=== PATIENT | female | born 1935 | race Caucasian/White ===

== ENCOUNTER 2016-06-27 14:39 | Inpatient (IN) | payer MEDICARE, OTHER ==
[~2016-06-27] VITALS: Ht 157.5 cm; Wt 63.6 kg
[2016-06-27 14:58] VITALS: BP 124/63; PULSE 59; RESP 16; TEMP 97.8; O2SAT 88
[2016-06-27] MEDS ORDERED: VITA10007 PO (14:59)
[2016-06-27] MEDS ORDERED: MULT-135 PO (14:59)
[2016-06-27] MEDS ORDERED: GABA600T PO ×2 (14:59)
[2016-06-27] MEDS ORDERED: REST0.05 EACH EYE (14:59)
[2016-06-27] MEDS ORDERED: POTA-163 PO (14:59)
[2016-06-27] MEDS ORDERED: FLUT1INH INH (14:59)
[2016-06-27] MEDS ORDERED: PROG100C PO (14:59)
[2016-06-27] MEDS ORDERED: DULO1CAP3 PO (14:59)
[2016-06-27] MEDS ORDERED: MEMA28CA PO (14:59)
[2016-06-27] MEDS ORDERED: RISP0.252 PO (14:59)
[2016-06-27] MEDS ORDERED: PHEN100C PO (14:59)
[2016-06-27] MEDS ORDERED: FURO20TA PO ×2 (14:59)
[2016-06-27] MEDS ORDERED: VIIB40TA PO (14:59)
[2016-06-27] MEDS ORDERED: VITA2000 PO (14:59)
[2016-06-27] MEDS ORDERED: ACYC5OIN4 TOPICAL (14:59)
[2016-06-27] MEDS ORDERED: BIOT2500 PO (14:59)
[2016-06-27] MEDS ORDERED: CYAN1TAB21 SL (14:59)
[2016-06-27] MEDS ORDERED: OMEG100037 PO (14:59)
[2016-06-27] MEDS ORDERED: VITACAP7 PO (14:59)
[2016-06-27] MEDS ORDERED: SODIUM CHLORIDE 0.9% FLUSH 5 ML FLUSH IVF PRN (15:00)
[2016-06-27] MEDS ORDERED: MECL12.574 PO (15:03)
[2016-06-27] MEDS ORDERED: HYDR-3583 PO (15:03)
[2016-06-27] MEDS ORDERED: HYOS0.128 PO (15:03)
[2016-06-27] MEDS ORDERED: BUTATAB6 PO (15:03)
[2016-06-27] MEDS ORDERED: TEMA30CA PO (15:03)
--- NOTE | 2016-06-27 15:06 | PD ---
HPI Chief Complaint: abdominal pain Time Seen by Provider: 14:51 Travel History International Travel<30 days: No Contact w/Intl Traveler<30days: No History of Present Illness HPI 81-year-old female presents from an assisted living facility where she had a trip and fall yesterday and went to an urgent care and was diagnosed with a rib fracture. She is having worsening pain and now abdominal pain so she presents here by ambulance. She states she did not hit her head or black out and denies other complaints other than pain to her chest and abdomen. Quality of pain is sharp. Severity is currently mild and it is intermittent in nature. 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, spinal surgery and neck, cataracts, IVC filter 2013, cystoscopy Social History Alcohol Use: No Tobacco Use: No Substance Use: No Allergies-Medications (Allergen,Severity, Reaction): Coded Allergies: Aspirin (Verified Allergy, Unknown, 06/27/16) Codeine (Verified Allergy, Unknown, 06/27/16) Fiorinal (Verified Allergy, Unknown, 06/27/16) Reported Meds & Prescriptions Reported Meds & Active Scripts Active Reported Tramadol (Tramadol HCl) 50 Mg Tab 1-2 Tab PO Q4-6H PRN Temazepam 30 Mg Cap 30 Mg PO HS PRN Meclizine (Meclizine HCl) 12.5 Mg Tab 12.5 Mg PO TID PRN Hyoscyamine (Hyoscyamine Sulfate) 0.125 Mg Tab 0.125 Mg PO Q6H Hydrocodone-Acetaminophen 10-325 mg Tab 1 Tab PO Q6H PRN Lhxjggwrxm-Btmexpnltugmu-Zrlehcjb 50-325-40 Mg Tab 1 Tab PO Q6HR PRN Do not exceed 6 tablets/day. Vitamin D3 (Cholecalciferol) 2,000 Unit Cap 2,000 Units PO DAILY Vitamin C (Ascorbic Acid) 1,000 Mg Tab 1,000 Mg PO DAILY Vitamin B-12 Odt (Cyanocobalamin) 5,000 Mcg Tab 2,500 Mcg SL DAILY Viibryd (Vilazodone) 40 Mg Tab 40 Mg PO DAILY Risperidone 0.25 Mg Tab 0.25 Mg PO BID Restasis Opth Drops (Cyclosporine Opth Drops) 0.05% Emul 1 Drop EACH EYE BID Progesterone Micronized 100 Mg Cap 100 Mg PO Potassium Chloride ER (Potassium Chloride) 20 Meq Tab 20 Meq PO DAILY Phenytoin Extended 100 Mg Cap 100 Mg PO BID Namenda Xr (Memantine) 28 Mg Caper 28 Mg PO DAILY Gabapentin 600 Mg Tab 600 Mg PO TID Gabapentin 600 Mg Tab 1,200 Mg PO HS Furosemide 20 Mg Tab 20 Mg PO DAILY@1600 Furosemide 20 Mg Tab 40 Mg PO DAILY Duloxetine DR (Duloxetine HCl) 60 Mg Capdr 60 Mg PO BID Breo Ellipta Inh (Fluticasone/Vilanterol) 100-25 Mcg/Act Inh 1 Puff INH DAILY Use daily at the same time. B Complex (B-Complex Vitamins) 1 Cap 1 Cap PO DAILY Acyclovir Topical (Acyclovir) 5% Oint 1 Applic TOPICAL Q3HR Multi Vitamin (Multiple Vitamin) 1 Tab Tab 1 Tab PO DAILY Fish Oil 1000 mg ([employer]-3 Fatty Acids) 1 Cap Cap Unknown Dose PO DAILY Biotin 2,500 Mcg Cap 2,500 Mcg PO DAILY Review of Systems ROS Limitations: Poor Historian Except as stated in HPI: all other systems reviewed are Neg Physical Exam Exam Limitations: Poor Historian Narrative General: 81 y/o patient in no apparent distress, patient had abdominal binder to chest wall which was removed and advised to not use Skin: Warm and dry Eyes: Pupils equal NECK: no pain with palpation and range of motion Cardiovascular: Regular rate and rhythm Respiratory: Normal respiratory effort noted, clear to auscultation bilaterally at apices Abdomen: soft, tender right upper quadrant, nondistended Back: No step-offs, midline spine nontender with movement Extremities: No pain over main joints Neuro: awake, moves all extremities, clear speech Data Data Last Documented VS Vital Signs Date Time Temp Pulse Resp B/P Pulse Ox O2 Delivery O2 Flow Rate FiO2 06/27/16 15:07 92 Nasal Cannula 2 06/27/16 14:58 97.8 59 16 124/63 Orders Basic Metabolic Panel (Bmp) (06/27/16 14:51) Complete Blood Count With Diff (06/27/16 14:51) Prothrombin Time / Inr (Pt) (06/27/16 14:51) Act Partial Throm Time (Ptt) (06/27/16 14:51) Type And Screen (06/27/16 14:51) Chest, Single Ap (06/27/16 14:51) Ct Abd/Pel W Iv Contrast(Rout) (06/27/16 14:51) Iv Access Insert/Monitor (06/27/16 14:51) Ecg Monitoring (06/27/16 14:51) Oximetry (06/27/16 14:51) Sodium Chloride 0.9% Flush (Ns Flush) (06/27/16 15:00) Ct Brain W/O Iv Contrast(Rout) (06/27/16 ) Ct Pulmonary Angiogram (06/27/16 ) Iohexol 350 Inj (Omnipaque 350 Inj) (06/27/16 17:30) Ketorolac Inj (Toradol Inj) (06/27/16 18:15) Admit Order (Ed Use Only) (06/27/16 18:16) Labs Laboratory Tests Test 06/27/16 15:14 White Blood Count 3.8 TH/MM3 Red Blood Count 4.04 MIL/MM3 Hemoglobin 13.3 GM/DL Hematocrit 39.8 % Mean Corpuscular Volume 98.4 FL Mean Corpuscular Hemoglobin 32.8 PG Mean Corpuscular Hemoglobin 33.3 % Concent Red Cell Distribution Width 13.6 % Platelet Count 125 TH/MM3 Mean Platelet Volume 7.4 FL Neutrophils (%) (Auto) 64.1 % Lymphocytes (%) (Auto) 24.8 % Monocytes (%) (Auto) 8.9 % Eosinophils (%) (Auto) 1.5 % Basophils (%) (Auto) 0.7 % Neutrophils # (Auto) 2.5 TH/MM3 Lymphocytes # (Auto) 0.9 TH/MM3 Monocytes # (Auto) 0.3 TH/MM3 Eosinophils # (Auto) 0.1 TH/MM3 Basophils # (Auto) 0.0 TH/MM3 CBC Comment DIFF FINAL Differential Comment Prothrombin Time 11.4 SEC Prothromb Time International 1.0 RATIO Ratio Activated Partial 29.0 SEC Thromboplast Time Sodium Level 142 MEQ/L Potassium Level 4.0 MEQ/L Chloride Level 104 MEQ/L Carbon Dioxide Level 29.6 MEQ/L Anion Gap 8 MEQ/L Blood Urea Nitrogen 15 MG/DL Creatinine 0.72 MG/DL Estimat Glomerular Filtration 78 ML/MIN Rate Random Glucose 109 MG/DL Calcium Level 8.2 MG/DL Blood Type A POSITIVE Antibody Screen NEGATIVE Blood Bank Comment MDM Medical Decision Making Medical Screen Exam Complete: Yes Emergency Medical Condition: Yes Medical Record Reviewed: Yes (past history confirmed) Interpretation(s) CBC & BMP Diagram 06/27/16 15:14 Last 24 hours Impressions Chest X-Ray 06/27/16 1451 Signed Impressions: Service Date/Time: Monday, June 27, 2016 15:01 - CONCLUSION: No acute intrathoracic disease. Richy Sheffield MD Abdomen/Pelvis CT 06/27/16 1451 Signed Impressions: Service Date/Time: Monday, June 27, 2016 16:28 - CONCLUSION: Normal examination. Mild extrahepatic biliary tree dilatation with some atrophy of the pancreas. Extensive diverticulosis. Kal Mitchell MD Head CT 06/27/16 0000 Signed Impressions: Service Date/Time: Monday, June 27, 2016 16:24 - CONCLUSION: Intracranially the exam is normal except for some atrophy. Old subdural drain holes without evidence of reoccurrence or acute hemorrhage. Expanded left maxillary sinus, suggest outpatient ENT referral. Kal Mitchell MD CT Angiography 06/27/16 0000 Signed Impressions: Service Date/Time: Monday, June 27, 2016 16:28 - CONCLUSION: Normal examination. Ascending aorta is prominent at 4.5 cm. Pulmonary artery root also dilated. Kal Mitchell MD ADDENDUM: There is a slightly displaced fracture of the right eighth rib. I don't see any pneumothorax or significant pleural effusion. Kal Mitchell MD Differential Diagnosis Pneumothorax, rib fracture, liver laceration, hemothorax, pulmonary contusion Narrative Course Will check blood work and trauma imaging and reevaluate. Patient currently is drowsy and comfortable unless you touch the area and her room air oxygen saturation is 88% so at this time will hold pain medication while awaiting workup discussed with radiologist and agrees with rib fracture, will add addendum patient will be admitted for pulmonary toilet and pain control, updated and agrees Physician Communication Physician Communication dr ubaldo clay can state in [place] with admit to medicine, can be consult if needed dr armijo agrees to admit Diagnosis Primary Impression: Right rib fracture Qualified Code: S22.31XA - Closed fracture of one rib of right side, initial encounter Additional Impressions: Abdominal pain Qualified Code: R10.11 - Right upper quadrant abdominal pain Hypoxia Admitting Information Admitting Physician Requests: Admit Lauryn Cardenas MD Jun 27, 2016 15:06
[2016-06-27 15:07] VITALS: O2SAT 92
--- NOTE | 2016-06-27 15:10 | RADHPO ---
EXAM DATE/TIME: 06/27/2016 15:01 [facility] COMPARISON: No previous studies available for comparison. INDICATIONS : Right side rib pain post fall yesterday & was diagnosed with rib fractures from different facility. E pigastric pain. MEDICAL HISTORY : SURGICAL HISTORY : Fusion, cervical. ENCOUNTER: Initial ACUITY: 2 days PAIN SCORE: 9/10 LOCATION: Right chest FINDINGS: A single view of the chest demonstrates the lungs to be symmetrically aerated without evidence of mas s, infiltrate or effusion. The cardiomediastinal contours are unremarkable. Osseous structures are grossly intact for the single AP chest.. CONCLUSION: No acute intrathoracic disease. Richy Sheffield MD on June 27, 2016 at 15:07 Board Certified Radiologist. This report was verified electronically.
[2016-06-27 15:24] LABS: AUTOMATED NEUTROPHIL # 2.5 TH/MM3 (1.8-7.7); BASOPHIL % 0.7 % (0.0-2.0); EOSINOPHIL # 0.1 TH/MM3 (0-0.4); EOSINOPHIL % 1.5 % (0.0-4.0); HEMATOCRIT 39.8 % (35.0-46.0); HEMO FLAGS DIFF FINAL; LYMPH % 24.8 % (9.0-44.0); LYMPHOCYTE # 0.9 TH/MM3 (1.0-4.8); MEAN CELL VOLUME 98.4 FL (80.0-100.0); MEAN CORPUSCULAR HEMOGLOBIN 32.8 PG (27.0-34.0); MEAN CORPUSCULAR HGB CONC 33.3 % (32.0-36.0); MONO % 8.9 % (0.0-8.0); NEUT % 64.1 % (16.0-70.0); PLATELET COUNT 125 TH/MM3 (150-450); RED BLOOD COUNT 4.04 MIL/MM3 (4.00-5.30); RED CELL DISTRIBUTION WIDTH 13.6 % (11.6-17.2); WHITE BLOOD COUNT 3.8 TH/MM3 (4.0-11.0)
[2016-06-27] MEDS ORDERED: TRAM50TA PO (15:25)
[2016-06-27 15:44] LABS: BICARBONATE 29.6 MEQ/L (21.0-32.0)
[2016-06-27 15:47] LABS: PROTHROMBIN TIME - PATIENT 11.4 SEC (9.8-11.6)
--- NOTE | 2016-06-27 17:14 | RADHPO ---
EXAM DATE/TIME: 06/27/2016 16:24 [facility] COMPARISON: No previous studies available for comparison. INDICATIONS: Trauma. RADIATION DOSE: 59.90 CTDIvol (mGy) MEDICAL HISTORY: Hypertension. Chronic obstructive pulmonary disease. SURGICAL HISTORY: None. ENCOUNTER: Initial ACUITY: 2 days PAIN SCALE: 0/10 LOCATION: Cranial TECHNIQUE: Multiple contiguous axial images were obtained of the head. Using automated exposure control and adj ustment of the mA and/or kV according to patient size, radiation dose was kept as low as reasonably a chievable to obtain optimal diagnostic quality images. FINDINGS: Non-contrast head CT demonstrate the patient has had bilateral subdural bur holes in the post erior frontal high convexities. No remaining subdural or acute subdural hematomas identified. There is mild di ffuse atrophy. No obvious mass or mass effect. There is abnormal soft tissue at the left maxillary sinus. It appears to be expanding in the secondary ostium. Difficult to rule out a maxillary sinus mass. CONCLUSION: Intracranially the exam is normal except for some atrophy. Old subdural drain holes without evidence of reoccurrence or acute hemorrhage. Expanded left maxillary sinus, suggest outpatient ENT referral. Kal Mitchell MD on June 27, 2016 at 17:07 Board Certified Radiologist. This report was verified electronically.
[2016-06-27] MEDS ORDERED: IOHEXOL 350 MG/ML 10 ML VIAL (for RAD DIAG) IV ONE (17:30)
--- NOTE | 2016-06-27 17:37 | RADHPO ---
EXAM DATE/TIME: 06/27/2016 16:28 This report includes an Addendum and supersedes previous reports for this exam. [facility] COMPARISON: No previous studies available for comparison. INDICATIONS : Fall yesterday. Right side chest pain. IV CONTRAST: 75 cc Omnipaque 350 (iohexol) IV ; Cumulative dose for multiple exams. RADIATION DOSE: 10.20 CTDIvol (mGy) MEDICAL HISTORY : Hypertension. Chronic obstructive pulmonary disease. SURGICAL HISTORY : None. ENCOUNTER: Initial ACUITY: 2 days PAIN SCALE: 6/10 LOCATION: Right chest TECHNIQUE: Volumetric scanning of the chest was performed using a pulmonary embolism protocol MIP images were re constructed. Using automated exposure control and adjustment of the mA and/or kV according to patien t size, radiation dose was kept as low as reasonably achievable to obtain optimal diagnostic quality images. FINDINGS: PULMONARY ARTERIES: No filling defects are seen in the pulmonary arteries through the segmental level. LUNGS: There is no consolidation or pneumothorax . No concerning pulmonary nodule is visualized. PLEURAE: There is no pleural thickening but there is a very small bilateral pleural effusion. MEDIASTINUM: There is good visualization of the great vessels of the middle mediastinum. No evidence of mediastin al or hilar adenopathy/mass. MUSCULOSKELETAL: Within normal limits for patient age. MISCELLANEOUS: The visualized upper abdominal organs demonstrate no acute abnormality. CONCLUSION: Normal examination. Ascending aorta is prominent at 4.5 cm. Pulmonary artery root also dilated. Kal Mitchell MD on June 27, 2016 at 17:34 Board Certified Radiologist. This report was verified electronically. ADDENDUM: There is a slightly displaced fracture of the right eighth rib. I don't see any pneumothorax or signi ficant pleural effusion. Kal Mitchell MD on June 27, 2016 at 17:52 Board Certified Radiologist. This report was verified electronically.
--- NOTE | 2016-06-27 17:44 | RADHPO ---
EXAM DATE/TIME: 06/27/2016 16:28 [facility] COMPARISON: No previous studies available for comparison. INDICATIONS : Fall yesterday. Right abdominal/pelvic pain. IV CONTRAST: 75 cc Omnipaque 350 (iohexol) IV ; Cumulative dose for multiple exams. ORAL CONTRAST: No oral contrast ingested. RADIATION DOSE: 12.64 CTDIvol (mGy) MEDICAL HISTORY : Hypertension. Chronic obstructive pulmonary disease. SURGICAL HISTORY : None. ENCOUNTER: Initial ACUITY: 1 day PAIN SCALE: 8/10 LOCATION: Right pelvis TECHNIQUE: Volumetric scanning of the abdomen and pelvis was performed. Using automated exposure control and ad justment of the mA and/or kV according to patient size, radiation dose was kept as low as reasonably achievable to obtain optimal diagnostic quality images. FINDINGS: LOWER LUNGS: The visualized lower lungs are clear. LIVER: Homogeneous density without lesion. There is extrahepatic dilation of the biliary tree. No calcifie d gallstones. SPLEEN: Normal size without lesion. PANCREAS: Mildly atrophic otherwise Within normal limits. KIDNEYS: Normal in size and shape. There is no mass, stone or hydronephrosis. ADRENAL GLANDS: Within normal limits. VASCULAR: There is no aortic aneurysm. BOWEL/MESENTERY: The stomach, small bowel, and colon demonstrate no acute abnormality. There is no free intraperitone al air or fluid. ABDOMINAL WALL: Within normal limits. RETROPERITONEUM: There is no lymphadenopathy. IVC filter in place BLADDER: No wall thickening or mass. REPRODUCTIVE: Within normal limits. INGUINAL: There is no lymphadenopathy or hernia. MUSCULOSKELETAL: Within normal limits for patient age. CONCLUSION: Normal examination. Mild extrahepatic biliary tree dilatation with some atrophy of the pancreas. Exte nsive diverticulosis. Kal Mitchell MD on June 27, 2016 at 17:40 Board Certified Radiologist. This report was verified electronically.
[2016-06-27] MEDS ORDERED: KETOROLAC TROMETHAMINE 30 MG/ML (IVP) VIAL IV PUSH ONE (18:15)
[2016-06-27 18:51] VITALS: BP 121/73; PULSE 57; RESP 18; O2SAT 95
[2016-06-27 18:57] VITALS: O2SAT 95
[2016-06-27] MEDS ORDERED: ONDANSETRON HCL 4 MG/2 ML VIAL IVP PRN (19:00)
[2016-06-27] MEDS ORDERED: MECLIZINE HCL 25 MG TAB PO PRN (19:00)
[2016-06-27] MEDS ORDERED: SODIUM CHLORIDE 0.9% FLUSH 5 ML FLUSH FLUSH PRN (19:00)
[2016-06-27] MEDS ORDERED: NALOXONE HCL 0.4 MG/ML AMP IV PRN (19:00)
[2016-06-27 19:16] VITALS: BP 115/62; PULSE 56; RESP 18; O2SAT 96
[2016-06-27] MEDS: ACYCLOVIR 5% OINT 15 APPLIC/15 GM TUBE TOPICAL SCH ×2 (20:00→23:00)
[2016-06-27] MEDS ORDERED: CHLORHEXIDINE GLUCONATE 2 % 1 PACK (2 CLOTHS)(extra cloths) TOP PRN (20:45)
[2016-06-27] MEDS ORDERED: PT OWN: RESTASIS OPHTH DROPS EACH EYE SCH (21:00)
[2016-06-27] MEDS: DULoxetine HCl DR 60 MG CAP PO SCH (21:20)
[2016-06-27] MEDS: GABAPENTIN 300 MG CAP PO SCH (21:20)
[2016-06-27] MEDS: risperiDONE 0.25 MG TAB PO SCH (21:20)
[2016-06-27] MEDS: HYOSCYAMINE 0.125 MG TAB PO SCH (21:21)
[2016-06-27] MEDS: SODIUM CHLORIDE 0.9% FLUSH 5 ML FLUSH FLUSH SCH (21:21)
[2016-06-27] MEDS: PHENYTOIN SODIUM 100 MG CAP PO SCH (21:21)
[2016-06-27 21:34] VITALS: BP 116/61; PULSE 59; RESP 16; O2SAT 97
[2016-06-28] VITALS (28 sets, daily range): BP systolic 93–141; BP diastolic 54–76; PULSE 52–74; RESP 16–32; TEMP 97.7–98.2; O2SAT 84–97
[2016-06-28] MEDS: ACETAMINOPHEN/HYDROcodone 325 MG/10 MG TAB PO PRN ×3 (00:08→18:31)
[2016-06-28] MEDS: ACYCLOVIR 5% OINT 15 APPLIC/15 GM TUBE TOPICAL SCH ×6 (02:00→15:19)
[2016-06-28] MEDS: HYOSCYAMINE 0.125 MG TAB PO SCH ×4 (02:00→20:06)
[2016-06-28] MEDS ORDERED: HALOPERIDOL LACTATE 5 MG/ML AMP IM ONE (03:00)
[2016-06-28] MEDS ORDERED: CHLORHEXIDINE GLUCONATE 2 % 1 PACK (2 CLOTHS)(taper/protocol) TOP SCH (04:00)
[2016-06-28 05:44] LABS: CHLORIDE 104 MEQ/L (98-107); POTASSIUM 3.8 MEQ/L (3.5-5.1); SODIUM (NA) 142 MEQ/L (136-145)
[2016-06-28 05:50] LABS: ANION GAP 7 MEQ/L (5-15); BICARBONATE 30.8 MEQ/L (21.0-32.0); BLOOD UREA NITROGEN 22 MG/DL (7-18)
[2016-06-28 05:53] LABS: ALT (GPT) 18 U/L (10-53); AST (GOT) 16 U/L (15-37); GLOMERULAR FILTRATION RATE 76 ML/MIN (>89)
[2016-06-28 05:56] LABS: ALKALINE PHOSPHATASE 71 U/L (45-117)
[2016-06-28 06:28] LABS: HEMATOCRIT 40.9 % (35.0-46.0); HEMO FLAGS AUTO DIFF; MEAN CELL VOLUME 101.3 FL (80.0-100.0); MEAN CORPUSCULAR HEMOGLOBIN 32.3 PG (27.0-34.0); MEAN CORPUSCULAR HGB CONC 31.9 % (32.0-36.0); PLATELET COUNT 118 TH/MM3 (150-450); RED BLOOD COUNT 4.04 MIL/MM3 (4.00-5.30); RED CELL DISTRIBUTION WIDTH 14.5 % (11.6-17.2); WHITE BLOOD COUNT 4.3 TH/MM3 (4.0-11.0)
[2016-06-28 07:21] LABS: NEUTROPHIL # MANUAL DIFF 3.1 TH/MM3 (1.8-7.7); POLYS (SEG NEUTROPHILS) 73 % (16-70); WBC DIFF SAMPLE 100
[2016-06-28 07:22] LABS: PLATELET ESTIMATE SMEAR LOW (NORMAL); PLATELET MORPHOLOGY NORMAL (NORMAL); SCAN/DIFF FINAL DIFF MANUAL
[2016-06-28] MEDS ORDERED: BIOTIN 2500 MCG PO SCH (09:00)
[2016-06-28] MEDS: MULTIVITAMIN TAB PO SCH (09:39)
[2016-06-28] MEDS: POTASSIUM CHLORIDE 20 MEQ CONTROLLED RELEASE TAB PO SCH (09:39)
[2016-06-28] MEDS: FUROSEMIDE 40 MG TAB PO SCH (09:40)
[2016-06-28] MEDS: CYANOCOBALAMIN 1,000 MCG TAB PO SCH (09:40)
[2016-06-28] MEDS: PHENYTOIN SODIUM 100 MG CAP PO SCH ×2 (09:40→20:06)
[2016-06-28] MEDS: GABAPENTIN 300 MG CAP PO SCH ×4 (09:40→20:26)
[2016-06-28] MEDS: DULoxetine HCl DR 60 MG CAP PO SCH ×2 (09:40→20:06)
[2016-06-28] MEDS: ASCORBIC ACID 500 MG TAB PO SCH (09:41)
[2016-06-28] MEDS: CHOLECALCIFEROL (VIT D3) 1000 UNIT TAB PO SCH (09:41)
[2016-06-28] MEDS: FLUTICASONE 100 MCG/VILANTEROL 25 MCG INHALER INH SCH (09:42)
[2016-06-28] MEDS: SODIUM CHLORIDE 0.9% FLUSH 5 ML FLUSH FLUSH SCH ×2 (12:00→20:06)
[2016-06-28] MEDS: risperiDONE 0.25 MG TAB PO SCH ×2 (12:01→20:05)
--- NOTE | 2016-06-28 12:11 | HHI.HP ---
History of Present Illness Service Primary Primary Care Physician Tramaine Hughes, DO Admission Diagnosis hypoxia, rib fracture Diagnoses: (1) Hypoxia Diagnosis: Secondary (2) Abdominal pain Diagnosis: Secondary (3) Right rib fracture Diagnosis: Principal (4) Dementia History of Present Illness This is an 81-year-old female who was brought from an assisted living facility after a trip and fall yesterday. Evaluation at an urgent care showed a R rib fracture. She was brought in for uncontrolled R flank and R abdominal pain. She denies head trauma, but does have underlying dementia. She described the pain as sharp, mild at rest, moderate to palation. 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 Neck surgery ALLIE Cataracts Neuropathy Past Surgical History Mastectomy Cataracts Neck surgery JOSE DANIEL Reported Medications Current Medications Medications (Trade) Dose Ordered Sig/[place] Route Start Time Stop Time Status Last Admin (NS Flush) 2 ml UNSCH PRN FLUSH 06/27/16 19:00 (NS Flush) 2 ml BID FLUSH 06/27/16 21:00 06/28/16 12:00 (Zofran Inj) 4 mg Q6H PRN IVP 06/27/16 19:00 (Restoril) 15 mg HS PRN PO 06/27/16 19:00 (Narcan Inj) 0.4 mg UNSCH PRN IV 06/27/16 19:00 (Zovirax 5% Oint (15 Gm)) 1 applic Q3HR TOPICAL 06/27/16 20:00 (Vitamin C) 1,000 mg DAILY PO 06/28/16 09:00 06/28/16 09:41 (Fioricet 325-50-40) 1 tab Q6HR PRN PO 06/27/16 19:00 (Vitamin D3) 2,000 units DAILY PO 06/28/16 09:00 06/28/16 09:41 (Vitamin B12) 2,500 mcg DAILY PO 06/28/16 09:00 06/28/16 09:40 (Cymbalta Dr) 60 mg BID PO 06/27/16 21:00 06/28/16 09:40 (Breo Ellipta 100-25 Inh) 1 puff DAILY INH 06/28/16 09:00 06/28/16 09:42 (Lasix) 40 mg DAILY PO 06/28/16 09:00 06/28/16 09:40 (Neurontin) 1,200 mg HS PO 06/27/16 21:00 06/27/16 21:20 (Neurontin) 600 mg TID PO 06/28/16 09:00 06/28/16 13:08 (Franklin 10-325 Mg) 1 tab Q6H PRN PO 06/27/16 19:00 06/28/16 12:01 (Levsin) 0.125 mg Q6H PO 06/27/16 20:00 06/28/16 15:31 (Antivert) 12.5 mg TID PRN PO 06/27/16 19:00 (Theragran) 1 tab DAILY PO 06/28/16 09:00 06/28/16 09:39 (Dilantin) 100 mg BID PO 06/27/16 21:00 06/28/16 09:40 (KCl) 20 meq DAILY PO 06/28/16 09:00 06/28/16 09:39 (risperDAL) 0.25 mg BID PO 06/27/16 21:00 06/28/16 12:01 Patient Own Medication PT OWN MED:NAMENDA XR 28MG DAILY PO 06/28/16 09:00 Patient Own Medication PT OWN MED:VIIBRYD 40MG DAILY PO 06/28/16 09:00 Patient Own Medication PT OWN MED:ROSETTESIS AUGUSTUS FERNANDO.. BID EACH EYE 06/28/16 14:00 06/28/16 14:00 Family History Father at 86 and mother at 89, both of natural causes. Social History Smoked up to 1/2 PPD for approx 25 years, no ETOH. Physical Exam Vital Signs Vital Signs Date Time Temp Pulse Resp B/P Pulse Ox O2 Delivery O2 Flow Rate FiO2 06/28/16 09:00 66 18 94 06/28/16 08:30 62 22 88 06/28/16 08:00 66 06/28/16 08:00 58 17 97 06/28/16 07:30 93 Nasal Cannula 2.00 06/28/16 07:30 58 25 91 06/28/16 07:21 97.7 62 25 121/70 85 06/28/16 07:00 58 16 06/28/16 06:03 59 06/28/16 05:04 58 20 98/62 06/28/16 04:00 58 06/28/16 03:35 98.2 60 32 112/54 06/28/16 03:01 74 32 141/66 95 06/28/16 02:00 56 06/28/16 02:00 56 25 06/28/16 01:00 52 30 06/28/16 01:00 52 06/28/16 00:35 96 Nasal Cannula 2.00 06/28/16 00:35 58 18 111/61 96 Nasal Cannula 2 06/28/16 00:31 98.0 52 27 137/76 95 06/27/16 21:34 59 16 116/61 97 Nasal Cannula 06/27/16 19:16 56 18 115/62 96 Nasal Cannula 2 06/27/16 19:16 Room Air 2 21 06/27/16 18:57 95 21 06/27/16 18:51 57 18 121/73 95 Room Air 06/27/16 15:07 92 Nasal Cannula 2 06/27/16 14:58 97.8 59 16 124/63 88 Physical Exam GENERAL: This is a well-nourished, well-developed patient, in no apparent distress. SKIN: No rashes, ecchymoses or lesions. Cool and dry. HEAD: Atraumatic. Normocephalic. No temporal or scalp tenderness. EYES: Pupils equal round and reactive. Extraocular motions intact. No scleral icterus. No injection or drainage. ENT: Nose without bleeding, purulent drainage or septal hematoma. NECK: Trachea midline. No JVD or lymphadenopathy. Supple, nontender, no meningeal signs. CARDIOVASCULAR: Regular rate and rhythm without murmurs, gallops, or rubs. RESPIRATORY: Clear to auscultation. Breath sounds equal bilaterally. No wheezes , rales, or rhonchi. GASTROINTESTINAL: Abdomen soft, Right quadrant tenderness to palpation., nondistended. No hepato-splenomegaly, or palpable masses. No guarding. MUSCULOSKELETAL: Extremities without clubbing, cyanosis, or edema. No joint tenderness, effusion, or edema noted. NEUROLOGICAL: Awake and alert. Pleasant, gives a fair history this morning, agitated requiring haldol last night. Laboratory Laboratory Tests Test 06/27/16 06/28/16 15:14 05:20 White Blood Count 3.8 4.3 Red Blood Count 4.04 4.04 Hemoglobin 13.3 13.1 Hematocrit 39.8 40.9 Mean Corpuscular Volume 98.4 101.3 Mean Corpuscular Hemoglobin 32.8 32.3 Mean Corpuscular Hemoglobin 33.3 31.9 Concent Red Cell Distribution Width 13.6 14.5 Platelet Count 125 118 Mean Platelet Volume 7.4 8.0 Neutrophils (%) (Auto) 64.1 Lymphocytes (%) (Auto) 24.8 Monocytes (%) (Auto) 8.9 Eosinophils (%) (Auto) 1.5 Basophils (%) (Auto) 0.7 Neutrophils # (Auto) 2.5 Lymphocytes # (Auto) 0.9 Monocytes # (Auto) 0.3 Eosinophils # (Auto) 0.1 Basophils # (Auto) 0.0 CBC Comment DIFF FINAL AUTO DIFF Differential Comment FINAL DIFF MANUAL Prothrombin Time 11.4 Prothromb Time International 1.0 Ratio Activated Partial 29.0 Thromboplast Time Sodium Level 142 142 Potassium Level 4.0 3.8 Chloride Level 104 104 Carbon Dioxide Level 29.6 30.8 Anion Gap 8 7 Blood Urea Nitrogen 15 22 Creatinine 0.72 0.74 Estimat Glomerular Filtration 78 76 Rate Random Glucose 109 102 Calcium Level 8.2 8.2 Blood Type A POSITIVE Antibody Screen NEGATIVE Blood Bank Comment Differential Total Cells 100 Counted Neutrophils % (Manual) 73 Lymphocytes % 18 Monocytes % 9 Neutrophils # (Manual) 3.1 Platelet Estimate LOW Platelet Morphology Comment NORMAL Total Bilirubin 1.0 Aspartate Amino Transf 16 (AST/SGOT) Alanine Aminotransferase 18 (ALT/SGPT) Alkaline Phosphatase 71 Total Protein 6.8 Albumin 3.6 Result Diagram: 06/28/1620 06/28/16 0520 Imaging Last 48 hours Impressions Chest X-Ray 06/27/16 1451 Signed Impressions: Service Date/Time: Monday, June 27, 2016 15:01 - CONCLUSION: No acute intrathoracic disease. Richy Sheffield MD Abdomen/Pelvis CT 06/27/16 1451 Signed Impressions: Service Date/Time: Monday, June 27, 2016 16:28 - CONCLUSION: Normal examination. Mild extrahepatic biliary tree dilatation with some atrophy of the pancreas. Extensive diverticulosis. Kal Mitchell MD Head CT 06/27/16 Signed Impressions: Service Date/Time: Monday, June 27, 2016 16:24 - CONCLUSION: Intracranially the exam is normal except for some atrophy. Old subdural drain holes without evidence of reoccurrence or acute hemorrhage. Expanded left maxillary sinus, suggest outpatient ENT referral. Kal Mitchell MD CT Angiography 06/27/16 Signed Impressions: Service Date/Time: Monday, June 27, 2016 16:28 - CONCLUSION: Normal examination. Ascending aorta is prominent at 4.5 cm. Pulmonary artery root also dilated. Kal Mitchell MD ADDENDUM: There is a slightly displaced fracture of the right eighth rib. I don't see any pneumothorax or significant pleural effusion. Kal Mitchell MD Assessment and Plan Problem List: (1) Hypoxia Status: Resolved Plan: Stable on 2L NC. (2) Abdominal pain Status: Acute Plan: Likely d/t rib fracture, trauma from fall. Imaging negative. (3) Right rib fracture Status: Acute Plan: Pain management, monitor. (4) Dementia Status: Chronic Plan: Required Haldol last night, pleasant, smiling this morning. Psych and neuro consults requested. (5) Hypertension Status: Chronic Plan: Stable, monitor. Assessment and Plan D/W RN, Dr. Hughes. Problem Qualifiers (1) Abdominal pain: Qualified Code: R10.11 - Right upper quadrant abdominal pain (2) Right rib fracture: Qualified Code: S22.31XA - Closed fracture of one rib of right side, initial encounter (3) Dementia: (4) Hypertension: Qualified Code: I10 - Essential hypertension Alla Steen Jun 28, 2016 12:11
[2016-06-28] MEDS: PT OWN: RESTASIS OPHTH DROPS EACH EYE SCH ×2 (14:00→20:16)
[2016-06-28] MEDS: ACETAMIN 325 MG/BUTALBITAL 50 MG/CAFFEINE 40 MG TAB PO PRN (16:26)
[2016-06-28] MEDS ORDERED: HALOPERIDOL LACTATE 5 MG/ML AMP IM PRN (17:30)
[2016-06-28 19:05] LABS: BLOOD, URINE NEG (NEG); GLUCOSE,URINE 100 mg/dL (NEG); KETONE, URINE NEG (NEG); NITRITE,URINE NEG (NEG); PH, URINE 5.5 (5.0-8.5)
[2016-06-28 19:11] LABS: URINE COLOR YELLOW (YELLW/STRAW)
[2016-06-28 19:13] LABS: COMMENT (UR) CULT NOT INDICATED; CULTURE IF INDICATED CULT NOT INDICATED; SQUAMOUS EPITHELIAL CELL URINE 0-2 /hpf (0-5); WBC, URINE 0-2 /hpf (0-5)
--- NOTE | 2016-06-28 20:59 | MB ---
cc: LEONIDAS OROZCO MD DATE OF CONSULTATION 06/28/[address] Hughes. REASON FOR CONSULTATION Evaluation for shortness of breath and hypoxia. HISTORY OF THE PRESENT ILLNESS Ms. Connolly is a pleasant 81-year-old female with history of dementia. The patient lives in assisted living facility. She had a trip and fell down. She was complaining of pain in the right side and the right flank and abdomen. Initially she was seen at a [facility] and she was sent to the emergency room. She had a workup done. She had a CT scan of the chest which shows slightly displaced fracture of the right rib. No significant pleural effusion or pneumothorax. Her CBC showed white blood cell count 4.3, hemoglobin 13.1, hematocrit 30.9, MCV 101, platelet count 118. Sodium 142, potassium 3.8, chloride 104, CO2 30, BUN 22, creatinine 0.74. PAST MEDICAL HISTORY Significant for: 1. History of dementia. 2. Mastectomy related to leaking silicone implants . 3. Anxiety, depression. 4. Chronic migraine. 5. History of neck surgery. 6. Sleep apnea. 7. Cataract surgery. MEDICATIONS She is currently takin. Lidocaine patch. 2. Haldol 5 mg p.r.n. 3. Breo Ellipta one puff daily. 4. Lasix 40 mg a day. 5. Neurontin 600 mg three times a day. 6. Potassium supplement. 7. Cymbalta 60 mg a day. 8. Dilantin 10 mg twice a day. 9. Risperdal 0.25 milligrams twice a day. 10. Fioricet as needed. ALLERGIES SHE IS ALLERGIC TO ASPIRIN, CODEINE AND FIORINAL. SOCIAL HISTORY She is . Lives in assisted living facility. She has a remote history of smoking. She used to work for electronics and soldering. FAMILY HISTORY She has no children. REVIEW OF SYSTEMS She is able to ambulate. She does maintain low oxygen saturation. Denies any seizure, stroke or epilepsy. PHYSICAL EXAMINATION GENERAL: Elderly female mild short of breath, not in acute distress. VITAL SIGNS: Blood pressure 136/72, heart rate 60, respirations 20, saturation 90% on 3 liters nasal cannula. HEENT: Pupils are equal and reactive to light. Oral mucosa, nasal mucosa normal. NECK: Supple. JVP not raised. CHEST: Air entry equal bilaterally. Decreased breath sounds at bases. CARDIOVASCULAR: S1, S2 normal. ABDOMEN: Benign. EXTREMITIES: No edema. IMPRESSION 1. Mild hypoxia. 2. Fall and rib fracture. 3. Atelectasis. 4. Dementia. PLAN We will supplement her oxygen to keep her saturation greater than 88%. Encourage her to use incentive spirometry. Continue aerosol treatment and pain control. Continue home medications. Further treatment will depend on the course in the hospital. Thank you Dr. Hughes for this consultation. MD MARIA DEL CARMEN Palafox/BAUDILIO /8:17 PM /8:32 PM MTDD
--- NOTE | 2016-06-28 21:23 | MB ---
cc: FRANCISCO MONTERO M.D. DATE OF CONSULTATION 06/28/2016 REASON FOR CONSULTATION Mental status change. HISTORY OF PRESENT ILLNESS Ms. Connolly is an 81-year-old female who has a history of a dementia, lives in assisted living, apparently tripped and fell yesterday, complained of pain and was found have a right rib fracture. She was admitted for abdominal pain and right flank pain. She has had alteration in mental status with confusion. PAST HISTORY 1. History of subdural hematoma in the past, status post evacuation. 2. Chronic migraines. 3. Dementia. 4. Hypertension. 5. PE. 6. Neck surgery. 7. Neuropathy. 8. Bilateral mastectomy for leakage of silicone implants. 9. Cataract surgery. 10. JOSE DANIEL. 11. Neck surgery. SOCIAL HISTORY Does not drink alcohol and did smoke for 25 years. CURRENT MEDICATIONS 1. Lidoderm patch. 2. Haldol p.r.n. 3. Vitamin C. 4. Vitamin D3. 5. Vitamin B12. 6. Breo Ellipta. 7. Lasix. 8. Neurontin 600 mg t.i.d. 9. Theragran. 10. Potassium chloride. 11. Dilantin 100 mg b.i.d. 12. Gabapentin 1200 mg at bedtime. 13. Risperdal 0.25 mg b.i.d. 14. Levsin 0.125 hours daily. 15. Zofran p.r.n. 16. Restoril p.r.n. 17. Narcan p.r.n. NEUROLOGIC EXAMINATION Blood pressure is 136/72, pulse is 60, respirations 22, temperature is 97.7 degrees. Higher Cortical Functions - She is alert, disoriented to date and place. Recalls three out of three objects in 3 minutes. Her remote memory is poor. She follows only simple commands. Cranial nerves intact. Motor Exam - There is no focal deficit with 5/5 strength throughout both upper and lower extremities. There is no drift. Reflexes symmetric. IMAGING STUDIES CT of the brain shows old subdural drain holes bilaterally. No evidence of any recurrent hematoma. There is atrophy consistent with age. No acute change present. LABORATORY DATA White count 4300, hemoglobin 13.1, hematocrit 40%, platelets 118,000. Sodium is 142, potassium is 3.8, chloride 104, CO2 30, the BUN is 22, creatinine 0.74, GFR 76, glucose 102, AST 16, ALT is 18. PT 11.4, INR 1, APTT 29. Urinalysis - The pH is 5.5, specific gravity 1.020, glucose is 100. IMPRESSION Dementia. Probable metabolic encephalopathy. RECOMMENDATIONS I would like to get an MRI of the brain to rule out the remote chance of stroke, also an EEG for further evaluation. Check additional labs including a thyroid panel, B12 level and serum ammonia level. MD JANINA Russo/KENNY /8:59 PM /9:09 PM
[2016-06-28] MEDS: TEMAZEPAM 15 MG CAP PO PRN (23:54)
[2016-06-29] VITALS (20 sets, daily range): BP systolic 86–121; BP diastolic 5–65; PULSE 50–66; RESP 16–33; TEMP 97.7–98.1; O2SAT 90–98
[2016-06-29] MEDS: HYOSCYAMINE 0.125 MG TAB PO SCH ×4 (02:00→20:46)
[2016-06-29] MEDS: ACETAMINOPHEN/HYDROcodone 325 MG/10 MG TAB PO PRN ×3 (03:33→15:55)
[2016-06-29 04:49] LABS: AUTOMATED NEUTROPHIL # 2.9 TH/MM3 (1.8-7.7); BASOPHIL % 0.3 % (0.0-2.0); EOSINOPHIL # 0.1 TH/MM3 (0-0.4); EOSINOPHIL % 1.8 % (0.0-4.0); HEMO FLAGS DIFF FINAL; LYMPH % 13.8 % (9.0-44.0); LYMPHOCYTE # 0.5 TH/MM3 (1.0-4.8); MEAN CELL VOLUME 99.1 FL (80.0-100.0); MEAN CORPUSCULAR HEMOGLOBIN 33.1 PG (27.0-34.0); MEAN CORPUSCULAR HGB CONC 33.4 % (32.0-36.0); MONO % 8.7 % (0.0-8.0); NEUT % 75.4 % (16.0-70.0); PLATELET COUNT 109 TH/MM3 (150-450); RED BLOOD COUNT 3.84 MIL/MM3 (4.00-5.30); RED CELL DISTRIBUTION WIDTH 13.1 % (11.6-17.2); WHITE BLOOD COUNT 3.8 TH/MM3 (4.0-11.0)
[2016-06-29 04:59] LABS: CHLORIDE 104 MEQ/L (98-107); POTASSIUM 3.9 MEQ/L (3.5-5.1); SODIUM (NA) 141 MEQ/L (136-145)
[2016-06-29 05:03] LABS: ANION GAP 8 MEQ/L (5-15); BICARBONATE 29.3 MEQ/L (21.0-32.0)
[2016-06-29 05:04] LABS: BLOOD UREA NITROGEN 21 MG/DL (7-18)
[2016-06-29 05:07] LABS: GLOMERULAR FILTRATION RATE 89 ML/MIN (>89)
[2016-06-29 05:17] LABS: MAGNESIUM 2.1 MG/DL (1.5-2.5)
[2016-06-29] MEDS: SODIUM CHLOR 0.9% 1000 ML INJ 1,000 ML IV SCH ×2 (05:24→15:56)
[2016-06-29] MEDS: DULoxetine HCl DR 20 MG CAP PO SCH ×2 (09:00→22:22)
[2016-06-29] MEDS: PT OWN: RESTASIS OPHTH DROPS EACH EYE SCH ×2 (09:00→20:59)
[2016-06-29] MEDS: PT OWN: NAMENDA XR 28MG PO SCH (09:00)
[2016-06-29] MEDS: VIIBRYD 40 MG PO SCH (09:00)
[2016-06-29] MEDS: SODIUM CHLORIDE 0.9% FLUSH 5 ML FLUSH FLUSH SCH ×2 (09:00→21:00)
[2016-06-29] MEDS: FLUTICASONE 100 MCG/VILANTEROL 25 MCG INHALER INH SCH (09:37)
[2016-06-29] MEDS: GABAPENTIN 100 MG CAP PO SCH ×3 (09:37→18:06)
[2016-06-29] MEDS: MULTIVITAMIN TAB PO SCH (09:38)
[2016-06-29] MEDS: PHENYTOIN SODIUM 100 MG CAP PO SCH ×2 (09:38→20:46)
[2016-06-29] MEDS: risperiDONE 0.25 MG TAB PO SCH ×2 (09:38→20:47)
[2016-06-29] MEDS: CHOLECALCIFEROL (VIT D3) 1000 UNIT TAB PO SCH (09:38)
[2016-06-29] MEDS: POTASSIUM CHLORIDE 20 MEQ CONTROLLED RELEASE TAB PO SCH (09:38)
[2016-06-29] MEDS: FUROSEMIDE 40 MG TAB PO SCH (09:38)
[2016-06-29] MEDS: LIDOCAINE HCL 5% PATCH TD SCH (09:41)
[2016-06-29] MEDS: CYANOCOBALAMIN 1,000 MCG TAB PO SCH (09:52)
[2016-06-29] MEDS: ASCORBIC ACID 500 MG TAB PO SCH (09:52)
--- NOTE | 2016-06-29 10:43 | PD.CONS ---
Provisional Diagnosis Admission Date Jun 27, 2016 at 18:17 Thornton I. Dementia with behavioral disturbance, delirium due to underlying medical conditions, history of depression and anxiety Thornton II. Deferred Thornton III. Rib fracture, hypertension, migraine Thornton IV. Cognitive impairment Thornton V. 45 History of Present Illness Service Psychiatry Consult Requested By Primary Care Physician DO GERALDINE Walsh The patient is an 81-year-old woman, domicile in a [facility], , with psychiatric history of anxiety, depression and dementia, she is on Cymbalta 60 mg twice a day, Risperdal 0.25 twice a day, medical history of migraine, hypertension, who was brought from an assisted living facility after a trip and fall. Evaluation at an urgent care showed a R rib fracture. She was brought in for uncontrolled R flank and R abdominal pain. Admitted due to severe abdominal pain and hypoxic. Patient became combative and aggressive, needing when necessary Haldol to come down. Consulted to psychiatry to help with behavioral control. On psychiatric evaluation patient was found sleeping in her room, but easily arousable, poorly cooperative, very poor historian, guarded , irritable, at the beginning refusing to speak, but with redirection she opened up a Little bit. She reports good mood, she says that she has been doing okay, she doesn't really know the reason she is here, but she denies pain and distress, she says that she had a good sleep last night. She denies depression, anxiety, suicidal and homicidal ideation. Patient is disoriented, she feels that she is at home with her , and she doesn't know today's date, seems to be confused. Review of Systems Constitutional: DENIES: Diaphoretic episodes, Fatigue, Fever, Weight gain, Weight loss, Chills, Dizziness, Change in appetite, Night Sweats Endocrine: DENIES: Abnorml menstrual pattern, Heat/cold intolerance, Polydipsia , Polyuria, Polyphagia Eyes: DENIES: Blurred vision, Diplopia, Eye inflammation, Eye pain, Vision loss , Photosensitivity, Double Vision Ears, nose, mouth, throat: DENIES: Tinnitus, Hearing loss, Vertigo, Nasal discharge, Oral lesions, Throat pain, Hoarseness, Ear Pain, Running Nose, Epistaxis, Sinus Pain, Toothache, Odynophagia Respiratory: DENIES: Apneas, Cough, Snoring, Wheezing, Hemoptysis, Sputum production, Shortness of breath Cardiovascular: DENIES: Chest pain, Palpitations, Syncope, Dyspnea on Exertion , PND, Lower Extremity Edema, Orthopnea, Claudication Gastrointestinal: DENIES: Abdominal pain, Black stools, Bloody stools, Constipation, Diarrhea, Nausea, Vomiting, Difficulty Swallowing, Anorexia Musculoskeletal: DENIES: Joint pain, Muscle aches, Stiffness, Joint Swelling, Back pain, Neck pain Integumentary: DENIES: Abnormal pigmentation, Pruritus, Rash, Nail changes, Breast masses, Breast skin changes, Nipple discharge Immunologic/allergic: DENIES: Eczema, Urticaria Neurologic: DENIES: Abnormal gait, Headache, Localized weakness, Paresthesias, Seizures, Speech Problems, Tremor, Poor Balance Psychiatric: DENIES: Anxiety, Confusion, Mood changes, Depression, Hallucinations, Agitation, Suicidal Ideation, Homicidal Ideation, Delusions Past Family Social History Coded Allergies: Aspirin (Verified Allergy, Unknown, 06/27/16) Codeine (Verified Allergy, Unknown, 06/27/16) Fiorinal (Verified Allergy, Unknown, 06/27/16) Reported Medications Tramadol 50 Mg Tab1-2 Tab PO Q4-6H PRN (PAIN) Ref 0 06/27/16 Meclizine 12.5 Mg Tab12.5 Mg PO TID PRN (VERTIGO) Ref 0 06/27/16 Hyoscyamine 0.125 Mg Tab0.125 Mg PO Q6H Ref 0 06/27/16 Hydrocodone-Acetaminophen 10-325 mg Tab1 Tab PO Q6H PRN (PAIN) Ref 0 06/27/16 Npqclfqofm-Cipamwnqvlgxe-Syxuawpj 50-325-40 Mg Tab1 Tab PO Q6HR PRN (HEADACHE) Ref 0 Do not exceed 6 tablets/day. 06/27/16 Cholecalciferol (Vitamin D3)2,000 Unit Cap2,000 Units PO DAILY #1 BOTTLE Ref 0 06/27/16 Ascorbic Acid (Vitamin C)1,000 Mg Tab1,000 Mg PO DAILY Ref 0 06/27/16 Cyanocobalamin Odt (Vitamin B-12 Odt)5,000 Mcg Tab2,500 Mcg SL DAILY Ref 0 06/27/16 Vilazodone (Viibryd)40 Mg Tab40 Mg PO DAILY #30 TAB Ref 0 1/31/17 Risperidone 0.25 Mg Tab0.25 Mg PO BID #60 TAB Ref 0 06/27/16 Cyclosporine Opth Drops (Restasis Opth Drops)0.05% Emul1 Drop EACH EYE BID #1 BOX Ref 0 06/27/16 Progesterone Micronized 100 Mg Zam152 Mg PO #30 CAP Ref 0 06/27/16 Potassium Chloride ER 20 Meq Tab20 Meq PO DAILY #30 TAB Ref 0 06/27/16 Phenytoin Extended 100 Mg Lxs072 Mg PO BID #90 CAP Ref 0 06/27/16 Memantine Er (Namenda Xr)28 Mg Caper28 Mg PO DAILY #30 CAP Ref 0 06/27/16 Gabapentin 600 Mg Xka832 Mg PO TID #90 TAB Ref 0 06/27/16 Gabapentin 600 Mg Tab1,200 Mg PO HS #30 TAB Ref 0 06/27/16 Furosemide 20 Mg Tab20 Mg PO DAILY@1600 #30 TAB Ref 0 06/27/16 Furosemide 20 Mg Tab40 Mg PO DAILY #30 TAB Ref 0 06/27/[address] 60 Mg Capdr60 Mg PO BID #30 CAP Ref 0 06/27/16 Fluticasone-Vilanterol Inh (Breo Ellipta Inh)100-25 Mcg/Act Inh1 Puff INH DAILY #1 INHALER Ref 0 Use daily at the same time. 06/27/16 B-Complex Vitamins (B Complex)1 Cap1 Cap PO DAILY #30 CAP Ref 0 06/27/16 Acyclovir Topical 5% Oint1 Applic TOPICAL Q3HR #5 GM Ref 0 06/27/16 Multiple Vitamin (Multi Vitamin)1 Tab Tab1 Tab PO DAILY 06/27/16 [place]-3 Fatty Acids (Fish Oil 1000 mg)1 Cap CapUnknown Dose PO DAILY 06/27/16 Biotin 2,500 Mcg Cap2,500 Mcg PO DAILY #1 BOTTLE 06/27/16 Discontinued Reported Medications Temazepam 30 Mg Cap30 Mg PO HS PRN (INSOMNIA) #30 CAP Ref 0 06/27/16 Current Medications Medications (Trade) Dose Ordered Sig/Spencer Route Start Time Stop Time Status Last Admin (NS Flush) 2 ml UNSCH PRN FLUSH 06/27/16 19:00 (NS Flush) 2 ml BID FLUSH 06/27/16 21:00 06/28/16 20:06 (Zofran Inj) 4 mg Q6H PRN IVP 06/27/16 19:00 (Restoril) 15 mg HS PRN PO 06/27/16 19:00 06/28/16 23:54 (Narcan Inj) 0.4 mg UNSCH PRN IV 06/27/16 19:00 (Vitamin C) 1,000 mg DAILY PO 06/28/16 09:00 06/29/16 09:52 (Fioricet 325-50-40) 1 tab Q6HR PRN PO 06/27/16 19:00 06/28/16 16:26 (Vitamin D3) 2,000 units DAILY PO 06/28/16 09:00 06/29/16 09:38 (Vitamin B12) 2,500 mcg DAILY PO 06/28/16 09:00 06/29/16 09:52 (Breo Ellipta 100-25 Inh) 1 puff DAILY INH 06/28/16 09:00 06/29/16 09:37 (Lasix) 40 mg DAILY PO 06/28/16 09:00 06/29/16 09:38 ([place] 10-325 Mg) 1 tab Q6H PRN PO 06/27/16 19:00 06/29/16 09:47 (Levsin) 0.125 mg Q6H PO 06/27/16 20:00 06/29/16 09:39 (Antivert) 12.5 mg TID PRN PO 06/27/16 19:00 (Theragran) 1 tab DAILY PO 06/28/16 09:00 06/29/16 09:38 (Dilantin) 100 mg BID PO 06/27/16 21:00 06/29/16 09:38 (KCl) 20 meq DAILY PO 06/28/16 09:00 06/29/16 09:38 Patient Own Medication PT OWN MED:NAMENDA XR 28MG DAILY PO 06/28/16 09:00 06/29/16 09:00 Patient Own Medication PT OWN MED:VIIBRYD 40MG DAILY PO 06/28/16 09:00 06/29/16 09:00 Patient Own Medication PT OWN MED:DEVON COFFMAN DR... BID EACH EYE 06/28/16 14:00 06/29/16 09:00 (Haldol Inj) 5 mg Q4H PRN IM 06/28/16 17:30 (Lidoderm 5% Patch.12 Hr) 1 patch DAILY TD 06/29/16 09:00 06/29/16 09:41 Miscellaneous Information 1 1 HS T-DERMAL 06/29/16 21:00 (NS 1000 ml Inj) 1,000 ml @ 100 mls/hr Q10H IV 06/29/16 05:15 06/29/16 05:24 (Cymbalta Dr) 20 mg BID PO 06/29/16 09:00 (risperDAL) 0.5 mg BID PO 06/29/16 09:00 06/29/16 09:38 (Neurontin) 200 mg TID PO 06/29/16 09:00 06/29/16 09:37 (Neurontin) 800 mg HS PO 06/29/16 21:00 Physical Exam Vital Signs Vital Signs Date Time Temp Pulse Resp B/P Pulse Ox O2 Delivery O2 Flow Rate FiO2 06/29/16 06:25 52 16 100/58 06/29/16 04:52 90 06/29/16 03:18 98.1 06/28/16 19:24 Nasal Cannula 3.00 06/27/16 19:16 21 I/O 06/28/16 06/28/16 06/29/16 08:00 16:00 00:00 Intake Total 100 ml 450 ml Output Total 0 ml 550 ml Balance 100 ml -100 ml Mental Status Examination Appearance , skinny elderly lady, age appearing, good hygiene, [facility], poorly cooperative, guarded, irritable Speech: Hesitant Orientation: Person Memory: Impaired (describe) Thought Process: Loose Association Thought Content: Paranoid Hallucination Type: None Suicidal Ideation: No Previous Suicide Attempts: No Homicidal Ideation: No Judgement: Poor Affect: Irritable Mood: Oppositional Motor Activity: Normal gait Assessment & Plan Problem List: (1) Dementia with behavioral disturbance Assessment & Plan: The patient is an 81-year-old woman with psychiatric history of anxiety, depression and dementia, she is on Cymbalta 60 mg twice a day, Risperdal 0.25 twice a day, medical history of migraine, hypertension, who was brought from an assisted living facility after a trip and fall. Evaluation at an urgent care showed a R rib fracture. She was brought in for uncontrolled R flank and R abdominal pain. Admitted due to severe abdominal pain and hypoxic. Patient became combative and aggressive, needing when necessary Haldol to come down. Consulted to psychiatry to help with behavioral control. Patient is poorly cooperative with psychiatric evaluation, guarded, irritable, confused and disoriented, but she denies acute pain, acute distress, she denies depression, she denies anxiety, she denies suicidal, homicidal ideation, she denies visual and auditory hallucinations. As per nursing report, at least in the last 24 hours patient hasn't showed any combative or aggressive behavior. Patient has history of aggressive behavior in the past which could be secondary to her dementia, but, as could be possible at this time, also could be secondary to delirium superimposed to dementia and exacerbated by underlying medical conditions. At this moment the patient does not meet criteria for psychiatric admission. Will increase the Risperdal to 0.5 twice a day for better behavioral control, will decrease the Cymbalta to 40 mg twice a day, since 60 mg twice a day is much higher than the highest recommended dose for depression, anxiety or pain. Also will add Haldol 2 mg IV every 8 hours when necessary aggressive behavior and agitation. Consult appreciated. ICD Code: F03.91 Assessment & Plan Estimated LOS: Omer Tovar MD Jun 29, 2016 10:43
[2016-06-29 10:47] LABS: FREE T4 0.86 NG/DL (0.76-1.46)
[2016-06-29] MEDS ORDERED: HALOPERIDOL LACTATE 5 MG/ML AMP IM PRN (11:00)
--- NOTE | 2016-06-29 13:35 | HHI.PR ---
Subjective Remarks Quiet this morning, receiving an EEG. Nurse reports no behavioral disturbance overnight, slept well. Objective Vital Signs Date Time Temp Pulse Resp B/P Pulse Ox O2 Delivery O2 Flow Rate FiO2 06/29/16 12:00 62 25 110/5 06/29/16 08:15 55 06/29/16 08:00 98.0 64 33 104/55 91 06/29/16 06:25 52 16 100/58 06/29/16 06:00 54 06/29/16 04:54 50 20 90/49 06/29/16 04:52 50 18 86/46 90 06/29/16 04:50 51 06/29/16 04:00 50 18 06/29/16 04:00 50 06/29/16 03:18 98.1 54 18 107/58 90 06/29/16 03:15 51 06/29/16 00:19 52 20 95/53 06/29/16 00:05 98.1 54 30 116/57 93 06/29/16 00:00 51 06/28/16 20:00 54 20 134/71 06/28/16 20:00 53 06/28/16 19:31 98.0 62 24 93/54 92 06/28/16 19:24 93 Nasal Cannula 3.00 06/28/16 16:30 56 06/28/16 16:26 54 06/28/16 16:00 58 32 06/28/16 15:30 58 25 06/28/16 15:06 60 22 136/72 84 06/28/16 14:30 60 20 06/28/16 14:00 62 24 06/28/16 13:30 60 23 93 I/O 06/28/16 06/28/16 06/28/16 06/29/16 06/29/16 06/29/16 07:00 15:00 23:00 07:00 15:00 23:00 Intake Total 100 ml 450 ml 100 ml Output Total 0 ml 550 ml 300 ml Balance 100 ml -100 ml -200 ml Intake Oral 100 ml 450 ml 100 ml Output Urine Total 0 ml 550 ml 300 ml Stool Total 0 ml 0 ml # Voids 2 2 Result Diagram: 06/29/16 0422 06/29/16 0422 Imaging Last 48 hours Impressions Chest X-Ray 06/27/16 4680 Signed Impressions: Service Date/Time: Monday, June 27, 2016 15:01 - CONCLUSION: No acute intrathoracic disease. Richy Sheffield MD Abdomen/Pelvis CT 06/27/16 1451 Signed Impressions: Service Date/Time: Monday, June 27, 2016 16:28 - CONCLUSION: Normal examination. Mild extrahepatic biliary tree dilatation with some atrophy of the pancreas. Extensive diverticulosis. Kal Mitchell MD Objective Remarks GENERAL: Thin, well-developed patient. SKIN: Warm and dry. HEAD: Normocephalic. EYES: No scleral icterus. No injection or drainage. NECK: Supple, trachea midline. No JVD or lymphadenopathy. CARDIOVASCULAR: Regular rate and rhythm without murmurs, gallops, or rubs. RESPIRATORY: Breath sounds equal bilaterally. No accessory muscle use. GASTROINTESTINAL: Abdomen soft, non-tender, nondistended. EXTREMITIES: No cyanosis, or edema. NEUROLOGICAL: Sleepy, arousable, confused. Medications and IVs Current Medications Medications (Trade) Dose Ordered Sig/Spencer Route Start Time Stop Time Status Last Admin (NS Flush) 2 ml UNSCH PRN FLUSH 06/27/16 19:00 (NS Flush) 2 ml BID FLUSH 06/27/16 21:00 06/28/16 20:06 (Zofran Inj) 4 mg Q6H PRN IVP 06/27/16 19:00 (Restoril) 15 mg HS PRN PO 06/27/16 19:00 06/28/16 23:54 (Narcan Inj) 0.4 mg UNSCH PRN IV 06/27/16 19:00 (Vitamin C) 1,000 mg DAILY PO 06/28/16 09:00 06/29/16 09:52 (Fioricet 325-50-40) 1 tab Q6HR PRN PO 06/27/16 19:00 06/28/16 16:26 (Vitamin D3) 2,000 units DAILY PO 06/28/16 09:00 06/29/16 09:38 (Vitamin B12) 2,500 mcg DAILY PO 06/28/16 09:00 06/29/16 09:52 (Breo Ellipta 100-25 Inh) 1 puff DAILY INH 06/28/16 09:00 06/29/16 09:37 (Lasix) 40 mg DAILY PO 06/28/16 09:00 06/29/16 09:38 ([place] 10-325 Mg) 1 tab Q6H PRN PO 06/27/16 19:00 06/29/16 09:47 (Levsin) 0.125 mg Q6H PO 06/27/16 20:00 06/29/16 09:39 (Antivert) 12.5 mg TID PRN PO 06/27/16 19:00 (Theragran) 1 tab DAILY PO 06/28/16 09:00 06/29/16 09:38 (Dilantin) 100 mg BID PO 06/27/16 21:00 06/29/16 09:38 (KCl) 20 meq DAILY PO 06/28/16 09:00 06/29/16 09:38 Patient Own Medication PT OWN MED:NAMENDA XR 28MG DAILY PO 06/28/16 09:00 06/29/16 09:00 Patient Own Medication PT OWN MED:VIIBRYD 40MG DAILY PO 06/28/16 09:00 06/29/16 09:00 Patient Own Medication PT OWN MED:DEVON COFFMAN DR... BID EACH EYE 06/28/16 14:00 06/29/16 09:00 (Haldol Inj) 5 mg Q4H PRN IM 06/28/16 17:30 (Lidoderm 5% Patch.12 Hr) 1 patch DAILY TD 06/29/16 09:00 06/29/16 09:41 Miscellaneous Information 1 1 HS T-DERMAL 06/29/16 21:00 (NS 1000 ml Inj) 1,000 ml @ 100 mls/hr Q10H IV 06/29/16 05:15 06/29/16 05:24 (Cymbalta ) 20 mg BID PO 06/29/16 09:00 (risperDAL) 0.5 mg BID PO 06/29/16 09:00 06/29/16 09:38 (Neurontin) 200 mg TID PO 06/29/16 09:00 06/29/16 09:37 (Neurontin) 800 mg HS PO 06/29/16 21:00 (Haldol Inj) 2 mg Q8H PRN IM 06/29/16 11:00 Assessment and Plan Problem List: (1) Hypoxia Status: Resolved Plan: Stable on 2L NC. (2) Abdominal pain Status: Acute Plan: Likely d/t rib fracture, trauma from fall. Imaging negative. (3) Right rib fracture Status: Acute Plan: Pain management, monitor. (4) Dementia Status: Chronic Plan: Did not require Haldol last night, calm, cooperative with EEG this morning. Psych and neuro consults in progress (5) Hypertension Status: Chronic Plan: Stable, monitor. Assessment and Plan Stable, improving. Once cleared by psychiatry and neurology she can go back to [facility] where she resides with her . D/W RN, Dr. Hughes. Problem Qualifiers (1) Abdominal pain: Qualified Code: R10.11 - Right upper quadrant abdominal pain (2) Right rib fracture: Qualified Code: S22.31XA - Closed fracture of one rib of right side, initial encounter (3) Dementia: (4) Hypertension: Qualified Code: I10 - Essential hypertension Alla Steen Jun 29, 2016 13:35
--- NOTE | 2016-06-29 14:49 | RADHPO ---
EXAM DATE/TIME: 06/29/2016 13:46 [facility] COMPARISON: No previous studies available for comparison. INDICATIONS : CVA. Confusion. Psychotic episode. MEDICAL HISTORY : Parkinson's. Alzheimer's. Hypothyroidism. HTN. PE. Neuropathy. Subdural hemotom a. SURGICAL HISTORY : Mastectomy, bilateral. Hysterectomy. Craniotomy. Cataracts. Neck. IVC Filter p lacement. ENCOUNTER: Subsequent ACUITY: 2 day PAIN SCORE: 3/10 LOCATION: cranial TECHNIQUE: Multiplanar, multisequence MRI of the brain was performed without contrast. FINDINGS: CEREBRUM: The ventricles are normal for age. No evidence of midline shift, mass lesion, hemorrha ge or acute infarction. No extraaxial fluid collections are seen. The pituitary gland and suprasell ar cistern are normal in configuration. WHITE MATTER: Mild to moderate signal abnormalities are seen in the white matter. POSTERIOR FOSSA: The cerebellum and brainstem are intact. The 4th ventricle is midline. The cere bellopontine angle is unremarkable. The cerebellar tonsils are normal in position. DIFFUSION IMAGING: No focal areas of restricted diffusion are seen. No evidence of acute infarct ion. EXTRACRANIAL: The visualized portions of the orbits and paranasal sinuses are unremarkable. CONCLUSION: Mild to moderate white matter disease characteristic of chronic microvascular ischemi c changes. No evidence of acute infarct, hemorrhage, mass or edema. Kris Marroquin MD on June 29, 2016 at 14:45 Board Certified Radiologist. This report was verified electronically.
--- NOTE | 2016-06-29 18:49 | HHI.PR ---
Subjective Remarks 81 YO female with fall, rib fracture, Hypoxia Feels better gets agitated On 2LNC Objective Vital Signs Vital Signs Date Time Temp Pulse Resp B/P Pulse Ox O2 Delivery O2 Flow Rate FiO2 06/29/16 16:15 63 06/29/16 15:57 97.7 62 32 121/65 06/29/16 13:04 58 23 113/62 06/29/16 12:40 55 06/29/16 12:00 62 25 110/5 06/29/16 08:15 55 06/29/16 08:00 92 Nasal Cannula 3.00 06/29/16 08:00 98.0 64 33 104/55 91 06/29/16 06:25 52 16 100/58 06/29/16 06:00 54 06/29/16 04:54 50 20 90/49 06/29/16 04:52 50 18 86/46 90 06/29/16 04:50 51 06/29/16 04:00 50 18 06/29/16 04:00 50 06/29/16 03:18 98.1 54 18 107/58 90 06/29/16 03:15 51 06/29/16 00:19 52 20 95/53 06/29/16 00:05 98.1 54 30 116/57 93 06/29/16 00:00 51 06/28/16 20:00 54 20 134/71 06/28/16 20:00 53 06/28/16 19:31 98.0 62 24 93/54 92 06/28/16 19:24 93 Nasal Cannula 3.00 I/O 06/28/16 06/28/16 06/28/16 06/29/16 06/29/16 06/29/16 07:00 15:00 23:00 07:00 15:00 23:00 Intake Total 100 ml 450 ml 100 ml 1250 ml Output Total 0 ml 550 ml 300 ml 500 ml Balance 100 ml -100 ml -200 ml 750 ml Intake Oral 100 ml 450 ml 100 ml 500 ml IV Total 750 ml Output Urine Total 0 ml 550 ml 300 ml 500 ml Stool Total 0 ml 0 ml # Voids 2 2 3 Result Diagram: 06/29/16 04206/29/16421 Objective Remarks GENERAL: MBMN female NAD SKIN: Warm and dry. HEAD: Normocephalic. EYES: No scleral icterus. No injection or drainage. NECK: Supple, trachea midline. No JVD or lymphadenopathy. CARDIOVASCULAR: Regular rate and rhythm without murmurs, gallops, or rubs. RESPIRATORY: Breath sounds equal bilaterally. No accessory muscle use. GASTROINTESTINAL: Abdomen soft, non-tender, nondistended. MUSCULOSKELETAL: No cyanosis, or edema. BACK: Nontender without obvious deformity. No CVA tenderness. A/P Assessment and Plan Mild hypoxia improved H/O Fall Rib fracture Dementia Chest wall pain PAIN Supplement 02 Keep sat >90% Breo ellipta daily Aerosol prn Maximiliano Severino MD Jun 29, 2016 18:49
--- NOTE | 2016-06-29 20:17 | MG ---
cc: VITALIY GRUBBS M.D., JAMES Lab No: Date: 06/29/16 Age: 81 Sex: F Race: REQUESTING Dr. Tamayo An EEG was obtained on this 81-year-old patient with a history of being evaluated for possible seizures. The patient is described as having some altered mental status and confusion. This EEG shows some low amplitude beta rhythms diffusely. There is some theta activity intermixed with alpha activity bilaterally. There are some sharp discharges occasionally left more than right frontocentral head regions, and there is probably more of the slower rhythms on the left frontotemporal than the right. There is awake and asleep and hyperventilation was not carried out. INTERPRETATION This EEG is showing mild abnormality with left more than right slowing with some sharp discharges of probable epileptiform significance but no epileptiform features present. These sharp discharges are seen on the left slightly more so than right. MD TRUDY Brandon/BJF /6:54 PM /8:10 PM
[2016-06-29] MEDS: GABAPENTIN 400 MG CAP PO SCH (20:46)
[2016-06-29] MEDS: TEMAZEPAM 15 MG CAP PO PRN (20:52)
[2016-06-29] MEDS: ACETAMIN 325 MG/BUTALBITAL 50 MG/CAFFEINE 40 MG TAB PO PRN (20:52)
[2016-06-29] MEDS: REMOVE OLD PATCH T-DERMAL SCH (20:59)
[2016-06-30] VITALS (10 sets, daily range): BP systolic 106–130; BP diastolic 55–82; PULSE 54–74; RESP 14–20; TEMP 96.9–98.3; O2SAT 90–96
[2016-06-30] MEDS: HYOSCYAMINE 0.125 MG TAB PO SCH ×4 (01:25→19:39)
[2016-06-30] MEDS: SODIUM CHLOR 0.9% 1000 ML INJ 1,000 ML IV SCH ×3 (01:26→17:02)
[2016-06-30] MEDS: ACETAMINOPHEN/HYDROcodone 325 MG/10 MG TAB PO PRN (01:26)
--- NOTE | 2016-06-30 06:21 | HHI.PR ---
Subjective Remarks Patient seen a bedside. Reports that she is still not feeling well. Objective Vital Signs Date Time Temp Pulse Resp B/P Pulse Ox O2 Delivery O2 Flow Rate FiO2 06/30/16 04:00 97.9 60 18 118/79 93 06/30/16 00:15 96 06/30/16 00:00 54 06/30/16 00:00 97.7 63 18 123/55 90 06/29/16 21:25 98 Nasal Cannula 3.00 06/29/16 21:25 22 06/29/16 20:00 60 06/29/16 20:00 98.1 66 20 105/49 98 06/29/16 16:15 63 06/29/16 15:57 97.7 62 32 121/65 06/29/16 13:04 58 23 113/62 06/29/16 12:40 55 06/29/16 12:00 62 25 110/5 06/29/16 08:15 55 06/29/16 08:00 92 Nasal Cannula 3.00 06/29/16 08:00 98.0 64 33 104/55 91 06/29/16 06:25 52 16 100/58 I/O 06/29/16 06/29/16 06/29/16 06/30/16 06/30/16 06/30/16 07:00 15:00 23:00 07:00 15:00 23:00 Intake Total 100 ml 2077 ml 480 ml Output Total 300 ml 1000 ml Balance -200 ml 1077 ml 480 ml Intake Oral 100 ml 740 ml 480 ml IV Total 1337 ml Output Urine Total 300 ml 1000 ml Stool Total 0 ml # Voids 2 3 3 # Bowel Movements 0 0 Result Diagram: 06/29/16 0422 06/29/16 0422 Imaging Last 48 hours Impressions Brain MRI 06/29/16 0000 Signed Impressions: Service Date/Time: June 13:46 - CONCLUSION: Mild to moderate white matter disease characteristic of chronic microvascular ischemic changes. No evidence of acute infarct, hemorrhage, mass or edema. Kris Marroquin MD Objective Remarks GENERAL: Elderly frail. Disoriented SKIN: Warm and dry. HEAD: Normocephalic. EYES: No scleral icterus. No injection or drainage. NECK: Supple, trachea midline. No JVD or lymphadenopathy. CARDIOVASCULAR: Regular rate and rhythm without murmurs, gallops, or rubs. RESPIRATORY: Breath sounds diminished. No accessory muscle use. On O2 3 GASTROINTESTINAL: Abdomen soft, non-tender, nondistended. MUSCULOSKELETAL: No cyanosis, or edema. BACK: Nontender without obvious deformity. No CVA tenderness. Medications and IVs Current Medications Medications (Trade) Dose Ordered Sig/Spencer Route Start Time Stop Time Status Last Admin (NS Flush) 2 ml UNSCH PRN FLUSH 06/27/16 19:00 (NS Flush) 2 ml BID FLUSH 06/27/16 21:00 06/28/16 20:06 (Zofran Inj) 4 mg Q6H PRN IVP 06/27/16 19:00 (Restoril) 15 mg HS PRN PO 06/27/16 19:00 06/29/16 20:52 (Narcan Inj) 0.4 mg UNSCH PRN IV 06/27/16 19:00 (Vitamin C) 1,000 mg DAILY PO 06/28/16 09:00 06/30/16 09:13 (Fioricet 325-50-40) 1 tab Q6HR PRN PO 06/27/16 19:00 06/29/16 20:52 (Vitamin D3) 2,000 units DAILY PO 06/28/16 09:00 06/30/16 09:13 (Vitamin B12) 2,500 mcg DAILY PO 06/28/16 09:00 06/30/16 09:12 (Breo Ellipta 100-25 Inh) 1 puff DAILY INH 06/28/16 09:00 06/30/16 09:13 (Lasix) 40 mg DAILY PO 06/28/16 09:00 06/30/16 09:13 ([place] 10-325 Mg) 1 tab Q6H PRN PO 06/27/16 19:00 06/30/16 01:26 (Levsin) 0.125 mg Q6H PO 06/27/16 20:00 06/30/16 09:12 (Antivert) 12.5 mg TID PRN PO 06/27/16 19:00 (Theragran) 1 tab DAILY PO 06/28/16 09:00 06/30/16 09:12 (Dilantin) 100 mg BID PO 06/27/16 21:00 06/30/16 09:12 (KCl) 20 meq DAILY PO 06/28/16 09:00 06/30/16 09:13 Patient Own Medication PT OWN MED:NAMENDA XR 28MG DAILY PO 06/28/16 09:00 06/30/16 09:14 Patient Own Medication PT OWN MED:VIIBRYD 40MG DAILY PO 06/28/16 09:00 06/30/16 09:14 Patient Own Medication PT OWN MED:DEVON COFFMAN DR... BID EACH EYE 06/28/16 14:00 06/30/16 09:14 (Haldol Inj) 5 mg Q4H PRN IM 06/28/16 17:30 (Lidoderm 5% Patch.12 Hr) 1 patch DAILY TD 06/29/16 09:00 06/30/16 09:15 Miscellaneous Information 1 1 HS T-DERMAL 06/29/16 21:00 06/29/16 20:59 (NS 1000 ml Inj) 1,000 ml @ 100 mls/hr Q10H IV 06/29/16 05:15 06/30/16 09:15 (Edilberto Francis) 20 mg BID PO 06/29/16 09:00 06/30/16 09:12 (risperDAL) 0.5 mg BID PO 06/29/16 09:00 06/30/16 09:13 (Neurontin) 200 mg TID PO 06/29/16 09:00 06/30/16 09:13 (Neurontin) 800 mg HS PO 06/29/16 21:00 06/29/16 20:46 (Haldol Inj) 2 mg Q8H PRN IM 06/29/16 11:00 Assessment and Plan Problem List: (1) Dementia Status: Chronic Plan: No behavior issues noted per nursing. Psych and neuro following. EEG shows mild abnormality (2) Hypertension Status: Chronic Plan: Blood pressure well controlled (3) Hypoxia Status: Acute Plan: Continues to be on O2 at 3 liters. Sat 92 percent (4) Right rib fracture Status: Acute Plan: Monitoring. Assessment and Plan Assessment and plan discussed with Dr. Hughes Problem Qualifiers (1) Dementia: (2) Hypertension: Qualified Code: I10 - Essential hypertension (3) Right rib fracture: Qualified Code: S22.31XA - Closed fracture of one rib of right side, initial encounter Karuna Torres Jun 30, 2016 06:21
[2016-06-30] MEDS: SODIUM CHLORIDE 0.9% FLUSH 5 ML FLUSH FLUSH SCH ×2 (09:00→21:00)
[2016-06-30] MEDS: MULTIVITAMIN TAB PO SCH (09:12)
[2016-06-30] MEDS: PHENYTOIN SODIUM 100 MG CAP PO SCH ×2 (09:12→19:45)
[2016-06-30] MEDS: DULoxetine HCl DR 20 MG CAP PO SCH ×2 (09:12→19:39)
[2016-06-30] MEDS: CYANOCOBALAMIN 1,000 MCG TAB PO SCH (09:12)
[2016-06-30] MEDS: FLUTICASONE 100 MCG/VILANTEROL 25 MCG INHALER INH SCH (09:13)
[2016-06-30] MEDS: POTASSIUM CHLORIDE 20 MEQ CONTROLLED RELEASE TAB PO SCH (09:13)
[2016-06-30] MEDS: ASCORBIC ACID 500 MG TAB PO SCH (09:13)
[2016-06-30] MEDS: risperiDONE 0.25 MG TAB PO SCH ×2 (09:13→19:40)
[2016-06-30] MEDS: CHOLECALCIFEROL (VIT D3) 1000 UNIT TAB PO SCH (09:13)
[2016-06-30] MEDS: FUROSEMIDE 40 MG TAB PO SCH (09:13)
[2016-06-30] MEDS: GABAPENTIN 100 MG CAP PO SCH ×3 (09:13→18:00)
[2016-06-30] MEDS: PT OWN: NAMENDA XR 28MG PO SCH (09:14)
[2016-06-30] MEDS: PT OWN: RESTASIS OPHTH DROPS EACH EYE SCH ×2 (09:14→20:07)
[2016-06-30] MEDS: VIIBRYD 40 MG PO SCH (09:14)
[2016-06-30] MEDS: LIDOCAINE HCL 5% PATCH TD SCH (09:15)
--- NOTE | 2016-06-30 18:17 | HHI.PR ---
Review/Management Diagnosis dementia history of sz---stable on dilantin Diagnosis/Plan: Subjective Subjective Comments No acute events reported more alert Active Medications Current Medications Medications (Trade) Dose Ordered Sig/Spencer Route Start Time Stop Time Status Last Admin (NS Flush) 2 ml UNSCH PRN FLUSH 06/27/16 19:00 (NS Flush) 2 ml BID FLUSH 06/27/16 21:00 06/28/16 20:06 (Zofran Inj) 4 mg Q6H PRN IVP 06/27/16 19:00 (Restoril) 15 mg HS PRN PO 06/27/16 19:00 06/29/16 20:52 (Narcan Inj) 0.4 mg UNSCH PRN IV 06/27/16 19:00 (Vitamin C) 1,000 mg DAILY PO 06/28/16 09:00 06/30/16 09:13 (Fioricet 325-50-40) 1 tab Q6HR PRN PO 06/27/16 19:00 06/29/16 20:52 (Vitamin D3) 2,000 units DAILY PO 06/28/16 09:00 06/30/16 09:13 (Vitamin B12) 2,500 mcg DAILY PO 06/28/16 09:00 06/30/16 09:12 (Breo Ellipta 100-25 Inh) 1 puff DAILY INH 06/28/16 09:00 06/30/16 09:13 (Lasix) 40 mg DAILY PO 06/28/16 09:00 06/30/16 09:13 ([place] 10-325 Mg) 1 tab Q6H PRN PO 06/27/16 19:00 06/30/16 01:26 (Levsin) 0.125 mg Q6H PO 06/27/16 20:00 06/30/16 14:55 (Antivert) 12.5 mg TID PRN PO 06/27/16 19:00 (Theragran) 1 tab DAILY PO 06/28/16 09:00 06/30/16 09:12 (Dilantin) 100 mg BID PO 06/27/16 21:00 06/30/16 09:12 (KCl) 20 meq DAILY PO 06/28/16 09:00 06/30/16 09:13 Patient Own Medication PT OWN MED:NAMENDA XR 28MG DAILY PO 06/28/16 09:00 06/30/16 09:14 Patient Own Medication PT OWN MED:VIIBRYD 40MG DAILY PO 06/28/16 09:00 06/30/16 09:14 Patient Own Medication PT OWN MED:DEVON COFFMAN DR... BID EACH EYE 06/28/16 14:00 06/30/16 09:14 (Haldol Inj) 5 mg Q4H PRN IM 06/28/16 17:30 (Lidoderm 5% Patch.12 Hr) 1 patch DAILY TD 06/29/16 09:00 06/30/16 09:15 Miscellaneous Information 1 1 HS T-DERMAL 06/29/16 21:00 06/29/16 20:59 (NS 1000 ml Inj) 1,000 ml @ 100 mls/hr Q10H IV 06/29/16 05:15 06/30/16 17:02 (Cymbalta Dr) 20 mg BID PO 06/29/16 09:00 06/30/16 09:12 (risperDAL) 0.5 mg BID PO 06/29/16 09:00 06/30/16 09:13 (Neurontin) 200 mg TID PO 06/29/16 09:00 06/30/16 18:00 (Neurontin) 800 mg HS PO 06/29/16 21:00 06/29/16 20:46 (Haldol Inj) 2 mg Q8H PRN IM 06/29/16 11:00 Allergies Allergies Coded Allergies Aspirin (Verified Allergy, Unknown, 06/27/16) Codeine (Verified Allergy, Unknown, 06/27/16) Fiorinal (Verified Allergy, Unknown, 06/27/16) Exam I&O / VS 06/29/16 06/29/16 06/30/16 15:00 23:00 07:00 Intake Total 2077 ml 480 ml Output Total 1000 ml Balance 1077 ml 480 ml Intake Oral 740 ml 480 ml IV Total 1337 ml Output Urine Total 1000 ml # Voids 3 3 # Bowel Movements 0 0 Vital Signs Date Time Temp Pulse Resp B/P Pulse Ox O2 Delivery O2 Flow Rate FiO2 06/30/16 16:00 96.9 74 20 130/82 93 06/30/16 12:00 96.9 64 20 106/58 95 06/30/16 10:08 92 Nasal Cannula 3.00 06/30/16 08:00 98.3 60 20 112/69 92 06/30/16 04:00 97.9 60 18 118/79 93 06/30/16 00:15 96 06/30/16 00:00 54 06/30/16 00:00 97.7 63 18 123/55 90 06/29/16 21:25 98 Nasal Cannula 3.00 06/29/16 21:25 22 06/29/16 20:00 60 06/29/16 20:00 98.1 66 20 105/49 98 Exam Comments alert, oriented to place, but has trouble with the date follows commands, speech is fluent , no neglect CN intact motor --no focal deficits Objective Radiology Results MRI brain--normal for age Diagnostic Tests EEG--bilateral frontal sharps and slowing Anthony Tamayo PhD MD Jun 30, 2016 18:17
[2016-06-30] MEDS: GABAPENTIN 400 MG CAP PO SCH (19:44)
[2016-06-30] MEDS: TEMAZEPAM 15 MG CAP PO PRN (19:45)
--- NOTE | 2016-06-30 20:25 | HHI.PR ---
Subjective Remarks 81 YO female with fall, rib fracture, Hypoxia Feels better On 2LNC tr to floor Feels well Objective Vital Signs Vital Signs Date Time Temp Pulse Resp B/P Pulse Ox O2 Delivery O2 Flow Rate FiO2 06/30/16 16:00 96.9 74 20 130/82 93 06/30/16 12:00 96.9 64 20 106/58 95 06/30/16 10:08 92 Nasal Cannula 3.00 06/30/16 08:00 98.3 60 20 112/69 92 06/30/16 04:00 97.9 60 18 118/79 93 06/30/16 00:15 96 06/30/16 00:00 54 06/30/16 00:00 97.7 63 18 123/55 90 06/29/16 21:25 98 Nasal Cannula 3.00 06/29/16 21:25 22 I/O 06/29/16 06/29/16 06/29/16 06/30/16 06/30/16 06/30/16 07:00 15:00 23:00 07:00 15:00 23:00 Intake Total 100 ml 2077 ml 480 ml 500 ml 1500 ml Output Total 300 ml 1000 ml Balance -200 ml 1077 ml 480 ml 500 ml 1500 ml Intake Oral 100 ml 740 ml 480 ml 500 ml IV Total 1337 ml 1500 ml Output Urine Total 300 ml 1000 ml Stool Total 0 ml # Voids 2 3 3 6 # Bowel Movements 0 0 0 Result Diagram: 06/29/1642106/29/16421 Objective Remarks GENERAL: MBMN female NAD SKIN: Warm and dry. HEAD: Normocephalic. EYES: No scleral icterus. No injection or drainage. NECK: Supple, trachea midline. No JVD or lymphadenopathy. CARDIOVASCULAR: Regular rate and rhythm without murmurs, gallops, or rubs. RESPIRATORY: Breath sounds equal bilaterally. No accessory muscle use. GASTROINTESTINAL: Abdomen soft, non-tender, nondistended. MUSCULOSKELETAL: No cyanosis, or edema. BACK: Nontender without obvious deformity. No CVA tenderness. A/P Assessment and Plan Mild hypoxia improved H/O Fall Rib fracture Dementia Chest wall pain PAIN Supplement 02 Keep sat >90% Breo ellipta daily Aerosol prn Stable from pulm standpoint Will see her intermittentally Maximiliano Severino MD Jun 30, 2016 20:24
[2016-06-30] MEDS: REMOVE OLD PATCH T-DERMAL SCH (21:00)
[2016-07-01] VITALS (10 sets, daily range): BP systolic 112–150; BP diastolic 69–78; PULSE 60–77; RESP 14–20; TEMP 97–98.9; O2SAT 87–96
[2016-07-01] MEDS: HYOSCYAMINE 0.125 MG TAB PO SCH ×4 (02:00→20:30)
[2016-07-01 06:42] LABS: AUTOMATED NEUTROPHIL # 2.6 TH/MM3 (1.8-7.7); BASOPHIL % 0.3 % (0.0-2.0); EOSINOPHIL # 0.1 TH/MM3 (0-0.4); HEMATOCRIT 37.7 % (35.0-46.0); HEMO FLAGS DIFF FINAL; LYMPH % 21.1 % (9.0-44.0); LYMPHOCYTE # 0.8 TH/MM3 (1.0-4.8); MEAN CELL VOLUME 98.7 FL (80.0-100.0); MEAN CORPUSCULAR HEMOGLOBIN 33.2 PG (27.0-34.0); MEAN CORPUSCULAR HGB CONC 33.6 % (32.0-36.0); MONO % 10.8 % (0.0-8.0); NEUT % 65.8 % (16.0-70.0); PLATELET COUNT 120 TH/MM3 (150-450); RED BLOOD COUNT 3.82 MIL/MM3 (4.00-5.30); RED CELL DISTRIBUTION WIDTH 13.1 % (11.6-17.2); WHITE BLOOD COUNT 3.9 TH/MM3 (4.0-11.0)
[2016-07-01 06:51] LABS: CHLORIDE 109 MEQ/L (98-107); POTASSIUM 3.8 MEQ/L (3.5-5.1); SODIUM (NA) 147 MEQ/L (136-145)
[2016-07-01 07:06] LABS: ALKALINE PHOSPHATASE 67 U/L (45-117); ALT (GPT) 15 U/L (10-53); ANION GAP 5 MEQ/L (5-15); AST (GOT) 16 U/L (15-37); BICARBONATE 32.6 MEQ/L (21.0-32.0); BLOOD UREA NITROGEN 8 MG/DL (7-18); GLOMERULAR FILTRATION RATE 98 ML/MIN (>89); TOTAL BILIRUBIN ADULT 0.6 MG/DL (0.2-1.0)
[2016-07-01] MEDS: SODIUM CHLOR 0.9% 1000 ML INJ 1,000 ML IV SCH ×3 (07:15→20:32)
[2016-07-01] MEDS: SODIUM CHLORIDE 0.9% FLUSH 5 ML FLUSH FLUSH SCH ×2 (08:27→20:31)
[2016-07-01] MEDS: CYANOCOBALAMIN 1,000 MCG TAB PO SCH (08:29)
[2016-07-01] MEDS: FUROSEMIDE 40 MG TAB PO SCH (08:30)
[2016-07-01] MEDS: CHOLECALCIFEROL (VIT D3) 1000 UNIT TAB PO SCH (08:30)
[2016-07-01] MEDS: MULTIVITAMIN TAB PO SCH (08:31)
[2016-07-01] MEDS: GABAPENTIN 100 MG CAP PO SCH ×3 (08:31→16:51)
[2016-07-01] MEDS: POTASSIUM CHLORIDE 20 MEQ CONTROLLED RELEASE TAB PO SCH (08:31)
[2016-07-01] MEDS: ASCORBIC ACID 500 MG TAB PO SCH (08:31)
[2016-07-01] MEDS: DULoxetine HCl DR 20 MG CAP PO SCH ×2 (08:32→20:30)
[2016-07-01] MEDS: risperiDONE 0.25 MG TAB PO SCH ×2 (08:32→20:30)
[2016-07-01] MEDS: PHENYTOIN SODIUM 100 MG CAP PO SCH ×2 (08:32→20:30)
[2016-07-01] MEDS: VIIBRYD 40 MG PO SCH (08:34)
[2016-07-01] MEDS: PT OWN: RESTASIS OPHTH DROPS EACH EYE SCH ×2 (08:34→20:33)
[2016-07-01] MEDS: PT OWN: NAMENDA XR 28MG PO SCH (08:34)
[2016-07-01] MEDS: LIDOCAINE HCL 5% PATCH TD SCH (08:35)
[2016-07-01] MEDS: FLUTICASONE 100 MCG/VILANTEROL 25 MCG INHALER INH SCH (08:35)
--- NOTE | 2016-07-01 12:34 | HHI.PR ---
Subjective Remarks feeling better pain improved Objective Vital Signs Date Time Temp Pulse Resp B/P Pulse Ox O2 Delivery O2 Flow Rate FiO2 07/01/16 08:00 68 07/01/16 08:00 97.0 64 20 150/71 95 07/01/16 07:20 95 Nasal Cannula 4.00 07/01/16 05:14 98.9 77 14 112/69 96 07/01/16 00:00 98.0 60 16 121/72 95 06/30/16 21:25 93 Nasal Cannula 4.00 06/30/16 20:15 98.2 65 14 111/64 96 06/30/16 20:00 66 06/30/16 16:00 96.9 74 20 130/82 93 I/O 06/30/16 06/30/16 06/30/16 07/01/16 07/01/16 07/01/16 07:00 15:00 23:00 07:00 15:00 23:00 Intake Total 480 ml 500 ml 1500 ml Balance 480 ml 500 ml 1500 ml Intake Oral 480 ml 500 ml IV Total 1500 ml # Voids 3 6 1 2 # Bowel Movements 0 0 Result Diagram: 07/01/16 0616 07/01/16 0616 Imaging Last 72 hours Impressions Brain MRI 06/29/16 0000 Signed Impressions: Service Date/Time: June 13:46 - CONCLUSION: Mild to moderate white matter disease characteristic of chronic microvascular ischemic changes. No evidence of acute infarct, hemorrhage, mass or edema. Kris Marroquin MD Objective Remarks GENERAL: SKIN: Warm and dry. HEAD: Atraumatic. Normocephalic. EYES: Pupils equal and round. No scleral icterus. No injection or drainage. ENT: No nasal bleeding or discharge. Mucous membranes pink and moist. NECK: Trachea midline. No JVD. CARDIOVASCULAR: Regular rate and rhythm. RESPIRATORY: No accessory muscle use. Clear to auscultation. Breath sounds equal bilaterally. pain l ribs GASTROINTESTINAL: Abdomen soft, non-tender, nondistended. Hepatic and splenic margins not palpable. MUSCULOSKELETAL: Extremities without clubbing, cyanosis, or edema. No obvious deformities. NEUROLOGICAL: Awake and alert. No obvious cranial nerve deficits. Motor grossly within normal limits. Five out of 5 muscle strength in the arms and legs. Normal speech. PSYCHIATRIC: less confused. Medications and IVs Current Medications Medications (Trade) Dose Ordered Sig/Spencer Route PRN Reason Start Time Stop Time Status Last Admin Dose Admin IV Flush (NS Flush) 2 ml UNSCH PRN FLUSH FLUSH AFTER USING IV ACCESS 06/27/16 19:00 IV Flush (NS Flush) 2 ml BID FLUSH 06/27/16 21:00 06/28/16 20:06 Ondansetron HCl (Zofran Inj) 4 mg Q6H PRN IVP NAUSEA OR VOMITING 06/27/16 19:00 Temazepam (Restoril) 15 mg HS PRN PO INSOMNIA 06/27/16 19:00 06/30/16 19:45 Naloxone HCl (Narcan Inj) 0.4 mg UNSCH PRN IV SEE LABEL COMMENTS 06/27/16 19:00 Ascorbic Acid (Vitamin C) 1,000 mg DAILY PO 06/28/16 09:00 07/01/16 08:31 Acetaminophen/ Butalbital/ Caffeine (Fioricet 325-50-40) 1 tab Q6HR PRN PO HEADACHE 06/27/16 19:00 06/29/16 20:52 Cholecalciferol (Vitamin D3) 2,000 units DAILY PO 06/28/16 09:00 07/01/16 08:30 Cyanocobalamin (Vitamin B12) 2,500 mcg DAILY PO 06/28/16 09:00 07/01/16 08:29 Fluticasone/ Vilanterol (Breo Ellipta 100-25 Inh) 1 puff DAILY INH 06/28/16 09:00 07/01/16 08:35 Furosemide (Lasix) 40 mg DAILY PO 06/28/16 09:00 07/01/16 08:30 Acetaminophen/ Hydrocodone Bitart ([place] 10-325 Mg) 1 tab Q6H PRN PO PAIN 06/27/16 19:00 06/30/16 01:26 Hyoscyamine Sulfate (Levsin) 0.125 mg Q6H PO 06/27/16 20:00 07/01/16 08:31 Meclizine HCl (Antivert) 12.5 mg TID PRN PO VERTIGO 06/27/16 19:00 Multivitamins (Theragran) 1 tab DAILY PO 06/28/16 09:00 07/01/16 08:31 Phenytoin (Dilantin) 100 mg BID PO 06/27/16 21:00 07/01/16 08:32 Potassium Chloride (KCl) 20 meq DAILY PO 06/28/16 09:00 07/01/16 08:31 Patient Own Medication PT OWN MED:NAMENDA XR 28MG DAILY PO 06/28/16 09:00 07/01/16 08:34 Patient Own Medication PT OWN MED:VIIBRYD 40MG DAILY PO 06/28/16 09:00 07/01/16 08:34 Patient Own Medication PT OWN MED:DEVON COFFMAN DR... BID EACH EYE 06/28/16 14:00 07/01/16 08:34 Haloperidol Lactate (Haldol Inj) 5 mg Q4H PRN IM AGITATION AND/OR HALLUCINATION 06/28/16 17:30 06/30/16 20:03 Lidocaine HCl (Lidoderm 5% Patch.12 Hr) 1 patch DAILY TD 06/29/16 09:00 07/01/16 08:35 Miscellaneous Information 1 1 HS T-DERMAL 06/29/16 21:00 06/30/16 21:00 Sodium Chloride (NS 1000 ml Inj) 1,000 ml @ 100 mls/hr Q10H IV 06/29/16 05:15 06/30/16 17:02 Duloxetine HCl (Cymbalta Dr) 20 mg BID PO 06/29/16 09:00 07/01/16 08:32 Risperidone (risperDAL) 0.5 mg BID PO 06/29/16 09:00 07/01/16 08:32 Gabapentin (Neurontin) 200 mg TID PO 06/29/16 09:00 07/01/16 08:31 Gabapentin (Neurontin) 800 mg HS PO 06/29/16 21:00 06/30/16 19:44 Haloperidol Lactate (Haldol Inj) 2 mg Q8H PRN IM AGGRESSIVE BEHAVIOR 06/29/16 11:00 Assessment and Plan Problem List: (1) Right rib fracture Status: Acute (2) Dementia with behavioral disturbance Status: Acute Assessment and Plan pt has stayed in sinus rhythm will dc tele will have PT eval and rx in antipitation of dc home or to snf if needed Problem Qualifiers (1) Right rib fracture: Qualified Code: S22.31XA - Closed fracture of one rib of right side, initial encounter Tramaine Hughesb 4, 2017 12:33
[2016-07-01] MEDS: TEMAZEPAM 15 MG CAP PO PRN (20:30)
[2016-07-01] MEDS: GABAPENTIN 400 MG CAP PO SCH (20:31)
[2016-07-01] MEDS: ACETAMINOPHEN/HYDROcodone 325 MG/10 MG TAB PO PRN (20:31)
[2016-07-01] MEDS: REMOVE OLD PATCH T-DERMAL SCH (20:32)
[2016-07-02] VITALS (7 sets, daily range): BP systolic 111–129; BP diastolic 62–78; PULSE 60–77; RESP 16–20; TEMP 97–98.1; O2SAT 90–97
[2016-07-02] MEDS: HYOSCYAMINE 0.125 MG TAB PO SCH ×4 (02:30→21:05)
[2016-07-02 06:22] LABS: AUTOMATED NEUTROPHIL # 1.9 TH/MM3 (1.8-7.7); BASOPHIL % 0.4 % (0.0-2.0); EOSINOPHIL # 0.1 TH/MM3 (0-0.4); EOSINOPHIL % 3.5 % (0.0-4.0); HEMATOCRIT 39.1 % (35.0-46.0); HEMO FLAGS DIFF FINAL; LYMPH % 29.1 % (9.0-44.0); MEAN CELL VOLUME 99.1 FL (80.0-100.0); MEAN CORPUSCULAR HGB CONC 33.3 % (32.0-36.0); MONO % 10.5 % (0.0-8.0); NEUT % 56.5 % (16.0-70.0); PLATELET COUNT 137 TH/MM3 (150-450); RED BLOOD COUNT 3.95 MIL/MM3 (4.00-5.30); RED CELL DISTRIBUTION WIDTH 13.1 % (11.6-17.2); WHITE BLOOD COUNT 3.3 TH/MM3 (4.0-11.0)
[2016-07-02 06:32] LABS: CHLORIDE 109 MEQ/L (98-107); POTASSIUM 3.5 MEQ/L (3.5-5.1); SODIUM (NA) 148 MEQ/L (136-145)
[2016-07-02 06:36] LABS: ANION GAP 6 MEQ/L (5-15); BICARBONATE 33.3 MEQ/L (21.0-32.0)
[2016-07-02 06:37] LABS: BLOOD UREA NITROGEN 10 MG/DL (7-18)
[2016-07-02 06:39] LABS: ALT (GPT) 20 U/L (10-53); AST (GOT) 19 U/L (15-37)
[2016-07-02 06:40] LABS: GLOMERULAR FILTRATION RATE 100 ML/MIN (>89)
[2016-07-02 06:41] LABS: TOTAL BILIRUBIN ADULT 0.5 MG/DL (0.2-1.0)
[2016-07-02 06:42] LABS: ALKALINE PHOSPHATASE 70 U/L (45-117)
[2016-07-02] MEDS: PT OWN: RESTASIS OPHTH DROPS EACH EYE SCH ×2 (09:00→21:00)
[2016-07-02] MEDS: SODIUM CHLORIDE 0.9% FLUSH 5 ML FLUSH FLUSH SCH ×2 (09:00→19:33)
[2016-07-02] MEDS: CYANOCOBALAMIN 1,000 MCG TAB PO SCH (09:06)
[2016-07-02] MEDS: GABAPENTIN 100 MG CAP PO SCH ×3 (09:06→17:15)
[2016-07-02] MEDS: POTASSIUM CHLORIDE 20 MEQ CONTROLLED RELEASE TAB PO SCH (09:07)
[2016-07-02] MEDS: PHENYTOIN SODIUM 100 MG CAP PO SCH ×2 (09:07→21:06)
[2016-07-02] MEDS: ASCORBIC ACID 500 MG TAB PO SCH (09:07)
[2016-07-02] MEDS: CHOLECALCIFEROL (VIT D3) 1000 UNIT TAB PO SCH (09:07)
[2016-07-02] MEDS: FUROSEMIDE 40 MG TAB PO SCH (09:08)
[2016-07-02] MEDS: MULTIVITAMIN TAB PO SCH (09:08)
[2016-07-02] MEDS: risperiDONE 0.25 MG TAB PO SCH ×2 (09:09→21:06)
[2016-07-02] MEDS: DULoxetine HCl DR 20 MG CAP PO SCH ×2 (09:09→21:05)
[2016-07-02] MEDS: FLUTICASONE 100 MCG/VILANTEROL 25 MCG INHALER INH SCH (09:10)
[2016-07-02] MEDS: LIDOCAINE HCL 5% PATCH TD SCH (09:11)
[2016-07-02] MEDS: PT OWN: NAMENDA XR 28MG PO SCH (09:22)
[2016-07-02] MEDS: ACETAMINOPHEN/HYDROcodone 325 MG/10 MG TAB PO PRN ×2 (09:22→17:18)
[2016-07-02] MEDS: VIIBRYD 40 MG PO SCH (09:25)
--- NOTE | 2016-07-02 09:36 | HHI.PR ---
Subjective Remarks feeling better pain improved not eating well albumin and protein are low Objective Vital Signs Date Time Temp Pulse Resp B/P Pulse Ox O2 Delivery O2 Flow Rate FiO2 07/02/16 07:40 97 Nasal Cannula 3.00 07/02/16 00:15 98.1 77 16 111/62 90 07/01/16 20:35 16 92 07/01/16 20:35 87 21 07/01/16 20:34 87 07/01/16 20:15 97.5 70 18 119/74 92 07/01/16 19:25 93 21 07/01/16 16:00 98.4 68 18 130/78 95 07/01/16 12:00 97.2 68 20 148/74 95 I/O 07/01/16 07/01/16 07/01/16 07/02/16 07/02/16 07/02/16 07:00 15:00 23:00 07:00 15:00 23:00 Intake Total 425 ml Balance 425 ml Intake Oral 425 ml # Voids 2 8 # Bowel Movements 1 1 2 Result Diagram: 07/02/16 0557 07/02/16 0557 Objective Remarks GENERAL: SKIN: Warm and dry. HEAD: Atraumatic. Normocephalic. EYES: Pupils equal and round. No scleral icterus. No injection or drainage. ENT: No nasal bleeding or discharge. Mucous membranes pink and moist. NECK: Trachea midline. No JVD. CARDIOVASCULAR: Regular rate and rhythm. RESPIRATORY: No accessory muscle use. Clear to auscultation. Breath sounds equal bilaterally. pain l ribs GASTROINTESTINAL: Abdomen soft, non-tender, nondistended. Hepatic and splenic margins not palpable. MUSCULOSKELETAL: Extremities without clubbing, cyanosis, or edema. No obvious deformities. NEUROLOGICAL: Awake and alert. No obvious cranial nerve deficits. Motor grossly within normal limits. Five out of 5 muscle strength in the arms and legs. Normal speech. PSYCHIATRIC: less confused. Medications and IVs Current Medications Medications (Trade) Dose Ordered Sig/Spencer Route PRN Reason Start Time Stop Time Status Last Admin Dose Admin IV Flush (NS Flush) 2 ml UNSCH PRN FLUSH FLUSH AFTER USING IV ACCESS 06/27/16 19:00 IV Flush (NS Flush) 2 ml BID FLUSH 06/27/16 21:00 06/28/16 20:06 Ondansetron HCl (Zofran Inj) 4 mg Q6H PRN IVP NAUSEA OR VOMITING 06/27/16 19:00 Temazepam (Restoril) 15 mg HS PRN PO INSOMNIA 06/27/16 19:00 07/01/16 20:30 Naloxone HCl (Narcan Inj) 0.4 mg UNSCH PRN IV SEE LABEL COMMENTS 06/27/16 19:00 Ascorbic Acid (Vitamin C) 1,000 mg DAILY PO 06/28/16 09:00 07/02/16 09:07 Acetaminophen/ Butalbital/ Caffeine (Fioricet 325-50-40) 1 tab Q6HR PRN PO HEADACHE 06/27/16 19:00 06/29/16 20:52 Cholecalciferol (Vitamin D3) 2,000 units DAILY PO 06/28/16 09:00 07/02/16 09:07 Cyanocobalamin (Vitamin B12) 2,500 mcg DAILY PO 06/28/16 09:00 07/02/16 09:06 Fluticasone/ Vilanterol (Breo Ellipta 100-25 Inh) 1 puff DAILY INH 06/28/16 09:00 07/02/16 09:10 Furosemide (Lasix) 40 mg DAILY PO 06/28/16 09:00 07/02/16 09:08 Acetaminophen/ Hydrocodone Bitart ([place] 10-325 Mg) 1 tab Q6H PRN PO PAIN 06/27/16 19:00 07/02/16 09:22 Hyoscyamine Sulfate (Levsin) 0.125 mg Q6H PO 06/27/16 20:00 07/02/16 09:07 Meclizine HCl (Antivert) 12.5 mg TID PRN PO VERTIGO 06/27/16 19:00 Multivitamins (Theragran) 1 tab DAILY PO 06/28/16 09:00 07/02/16 09:08 Phenytoin (Dilantin) 100 mg BID PO 06/27/16 21:00 07/02/16 09:07 Potassium Chloride (KCl) 20 meq DAILY PO 06/28/16 09:00 07/02/16 09:07 Patient Own Medication PT OWN MED:NAMENDA XR 28MG DAILY PO 06/28/16 09:00 07/02/16 09:22 Patient Own Medication PT OWN MED:VIIBRYD 40MG DAILY PO 06/28/16 09:00 07/02/16 09:25 Patient Own Medication PT OWN MED:DEVON COFFMAN DR... BID EACH EYE 06/28/16 14:00 07/01/16 08:34 Haloperidol Lactate (Haldol Inj) 5 mg Q4H PRN IM AGITATION AND/OR HALLUCINATION 06/28/16 17:30 06/30/16 20:03 Lidocaine HCl (Lidoderm 5% Patch.12 Hr) 1 patch DAILY TD 06/29/16 09:00 07/02/16 09:11 Miscellaneous Information 1 1 HS T-DERMAL 06/29/16 21:00 07/01/16 20:32 Sodium Chloride (NS 1000 ml Inj) 1,000 ml @ 100 mls/hr Q10H IV 06/29/16 05:15 07/01/16 20:32 Duloxetine HCl (Cymbalta Dr) 20 mg BID PO 06/29/16 09:00 07/02/16 09:09 Risperidone (risperDAL) 0.5 mg BID PO 06/29/16 09:00 07/02/16 09:09 Gabapentin (Neurontin) 200 mg TID PO 06/29/16 09:00 07/02/16 09:06 Gabapentin (Neurontin) 800 mg HS PO 06/29/16 21:00 07/01/16 20:31 Haloperidol Lactate (Haldol Inj) 2 mg Q8H PRN IM AGGRESSIVE BEHAVIOR 06/29/16 11:00 Assessment and Plan Problem List: (1) Right rib fracture Status: Acute (2) Dementia with behavioral disturbance Status: Acute Assessment and Plan pt assesment shows balance and gait deficits w3ill dc to snf for further therapy Problem Qualifiers (1) Right rib fracture: Qualified Code: S22.31XA - Closed fracture of one rib of right side, initial encounter Tramaine Hughes DO Jul 02, 2016 09:36
[2016-07-02] MEDS: SODIUM CHLOR 0.9% 1000 ML INJ 1,000 ML IV SCH ×2 (13:09→21:06)
[2016-07-02] MEDS: GABAPENTIN 400 MG CAP PO SCH (21:05)
[2016-07-02] MEDS: REMOVE OLD PATCH T-DERMAL SCH (21:06)
[2016-07-03] VITALS: BP 110/68; PULSE 53; RESP 18; TEMP 96.5; O2SAT 98
[2016-07-03] MEDS: HYOSCYAMINE 0.125 MG TAB PO SCH ×3 (02:00→12:06)
[2016-07-03 04:00] VITALS: BP 137/80; PULSE 64; RESP 20; TEMP 97.7; O2SAT 93
--- NOTE | 2016-07-03 06:17 | HHI.PR ---
Subjective Remarks Patient seen a bedside. Reports that she is feeling better Objective Vital Signs Date Time Temp Pulse Resp B/P Pulse Ox O2 Delivery O2 Flow Rate FiO2 07/03/16 00:00 96.5 53 18 110/68 98 07/02/16 20:00 97.9 60 18 123/75 96 07/02/16 19:26 95 Nasal Cannula 2.00 07/02/16 18:18 20 07/02/16 16:00 98.0 77 18 120/71 96 07/02/16 12:00 97.0 61 20 128/76 95 07/02/16 08:00 97.2 62 20 129/78 95 07/02/16 07:40 97 Nasal Cannula 3.00 I/O 07/02/16 07/02/16 07/02/16 07/03/16 07/03/16 07/03/16 07:00 15:00 23:00 07:00 15:00 23:00 Intake Total 725 ml 60 ml Balance 725 ml 60 ml Intake Oral 725 ml 60 ml # Voids 4 0 1 # Bowel Movements 2 0 Result Diagram: 07/02/16 0557 07/02/16 0557 Objective Remarks GENERAL: Elderly frail. Disoriented SKIN: Warm and dry. HEAD: Normocephalic. EYES: No scleral icterus. No injection or drainage. NECK: Supple, trachea midline. No JVD or lymphadenopathy. CARDIOVASCULAR: Regular rate and rhythm without murmurs, gallops, or rubs. RESPIRATORY: Breath sounds diminished. No accessory muscle use. On O2 3 GASTROINTESTINAL: Abdomen soft, non-tender, nondistended. MUSCULOSKELETAL: No cyanosis, or edema. BACK: Nontender without obvious deformity. No CVA tenderness. Medications and IVs Current Medications Medications (Trade) Dose Ordered Sig/Spencer Route Start Time Stop Time Status Last Admin (NS Flush) 2 ml UNSCH PRN FLUSH 06/27/16 19:00 (NS Flush) 2 ml BID FLUSH 06/27/16 21:00 06/28/16 20:06 (Zofran Inj) 4 mg Q6H PRN IVP 06/27/16 19:00 (Restoril) 15 mg HS PRN PO 06/27/16 19:00 07/01/16 20:30 (Narcan Inj) 0.4 mg UNSCH PRN IV 06/27/16 19:00 (Vitamin C) 1,000 mg DAILY PO 06/28/16 09:00 07/03/16 08:54 (Fioricet 325-50-40) 1 tab Q6HR PRN PO 06/27/16 19:00 06/29/16 20:52 (Vitamin D3) 2,000 units DAILY PO 06/28/16 09:00 07/03/16 08:55 (Vitamin B12) 2,500 mcg DAILY PO 06/28/16 09:00 07/03/16 08:52 (Breo Ellipta 100-25 Inh) 1 puff DAILY INH 06/28/16 09:00 07/03/16 08:57 (Lasix) 40 mg DAILY PO 06/28/16 09:00 07/03/16 08:48 ([place] 10-325 Mg) 1 tab Q6H PRN PO 06/27/16 19:00 07/02/16 17:18 (Levsin) 0.125 mg Q6H PO 06/27/16 20:00 07/03/16 12:06 (Antivert) 12.5 mg TID PRN PO 06/27/16 19:00 (Theragran) 1 tab DAILY PO 06/28/16 09:00 07/03/16 08:50 (Dilantin) 100 mg BID PO 06/27/16 21:00 07/03/16 08:50 (KCl) 20 meq DAILY PO 06/28/16 09:00 07/03/16 08:50 Patient Own Medication PT OWN MED:NAMENDA XR 28MG DAILY PO 06/28/16 09:00 07/03/16 08:47 Patient Own Medication PT OWN MED:VIIBRYD 40MG DAILY PO 06/28/16 09:00 07/03/16 08:47 Patient Own Medication PT OWN MED:RESTASIS A[place]. BID EACH EYE 06/28/16 14:00 07/01/16 08:34 (Haldol Inj) 5 mg Q4H PRN IM 06/28/16 17:30 06/30/16 20:03 (Lidoderm 5% Patch.12 Hr) 1 patch DAILY TD 06/29/16 09:00 07/03/16 08:56 Miscellaneous Information 1 1 HS T-DERMAL 06/29/16 21:00 07/02/16 21:06 (NS 1000 ml Inj) 1,000 ml @ 100 mls/hr Q10H IV 06/29/16 05:15 07/01/16 20:32 (Cymbalta Dr) 20 mg BID PO 06/29/16 09:00 07/03/16 08:52 (risperDAL) 0.5 mg BID PO 06/29/16 09:00 07/03/16 08:51 (Neurontin) 200 mg TID PO 06/29/16 09:00 07/03/16 12:07 (Neurontin) 800 mg HS PO 06/29/16 21:00 07/02/16 21:05 (Haldol Inj) 2 mg Q8H PRN IM 06/29/16 11:00 Assessment and Plan Problem List: (1) Dementia Status: Chronic Plan: No behavior issues noted per nursing. Psych and neuro following. EEG shows mild abnormality (2) Hypertension Status: Chronic Plan: Blood pressure well controlled (3) Hypoxia Status: Acute Plan: Continues to be on O2 at 3 liters. Sat 92 percent (4) Right rib fracture Status: Acute Plan: Monitoring. Assessment and Plan Assessment and plan discussed with Dr. Hughes Problem Qualifiers (1) Dementia: (2) Hypertension: Qualified Code: I10 - Essential hypertension (3) Right rib fracture: Qualified Code: S22.31XA - Closed fracture of one rib of right side, initial encounter Karuna Torres Jul 03, 2016 06:17
[2016-07-03 06:22] LABS: AUTOMATED NEUTROPHIL # 2.2 TH/MM3 (1.8-7.7); BASOPHIL % 0.5 % (0.0-2.0); EOSINOPHIL # 0.1 TH/MM3 (0-0.4); EOSINOPHIL % 3.1 % (0.0-4.0); HEMATOCRIT 37.4 % (35.0-46.0); HEMO FLAGS DIFF FINAL; LYMPH % 17.5 % (9.0-44.0); LYMPHOCYTE # 0.6 TH/MM3 (1.0-4.8); MEAN CELL VOLUME 99.5 FL (80.0-100.0); MEAN CORPUSCULAR HEMOGLOBIN 33.7 PG (27.0-34.0); MEAN CORPUSCULAR HGB CONC 33.8 % (32.0-36.0); MONO % 8.6 % (0.0-8.0); NEUT % 70.3 % (16.0-70.0); PLATELET COUNT 120 TH/MM3 (150-450); RED BLOOD COUNT 3.76 MIL/MM3 (4.00-5.30); RED CELL DISTRIBUTION WIDTH 13.6 % (11.6-17.2); WHITE BLOOD COUNT 3.2 TH/MM3 (4.0-11.0)
[2016-07-03 06:29] LABS: CHLORIDE 106 MEQ/L (98-107); POTASSIUM 3.3 MEQ/L (3.5-5.1); SODIUM (NA) 146 MEQ/L (136-145)
[2016-07-03 06:32] LABS: ANION GAP 8 MEQ/L (5-15); BICARBONATE 32.1 MEQ/L (21.0-32.0); BLOOD UREA NITROGEN 12 MG/DL (7-18)
[2016-07-03 06:35] LABS: ALT (GPT) 21 U/L (10-53); AST (GOT) 18 U/L (15-37)
[2016-07-03 06:36] LABS: GLOMERULAR FILTRATION RATE 100 ML/MIN (>89)
[2016-07-03 06:37] LABS: TOTAL BILIRUBIN ADULT 0.7 MG/DL (0.2-1.0)
[2016-07-03 06:38] LABS: ALKALINE PHOSPHATASE 70 U/L (45-117)
[2016-07-03 08:00] VITALS: O2SAT 92
[2016-07-03 08:42] VITALS: BP 152/84; PULSE 72; RESP 18; TEMP 96.6; O2SAT 95
[2016-07-03] MEDS: PT OWN: NAMENDA XR 28MG PO SCH (08:47)
[2016-07-03] MEDS: VIIBRYD 40 MG PO SCH (08:47)
[2016-07-03] MEDS: FUROSEMIDE 40 MG TAB PO SCH (08:48)
[2016-07-03] MEDS: SODIUM CHLORIDE 0.9% FLUSH 5 ML FLUSH FLUSH SCH (08:49)
[2016-07-03] MEDS: POTASSIUM CHLORIDE 20 MEQ CONTROLLED RELEASE TAB PO SCH (08:50)
[2016-07-03] MEDS: MULTIVITAMIN TAB PO SCH (08:50)
[2016-07-03] MEDS: PHENYTOIN SODIUM 100 MG CAP PO SCH (08:50)
[2016-07-03] MEDS: GABAPENTIN 100 MG CAP PO SCH ×2 (08:50→12:07)
[2016-07-03] MEDS: risperiDONE 0.25 MG TAB PO SCH (08:51)
[2016-07-03] MEDS: CYANOCOBALAMIN 1,000 MCG TAB PO SCH (08:52)
[2016-07-03] MEDS: DULoxetine HCl DR 20 MG CAP PO SCH (08:52)
[2016-07-03] MEDS: ASCORBIC ACID 500 MG TAB PO SCH (08:54)
[2016-07-03] MEDS: CHOLECALCIFEROL (VIT D3) 1000 UNIT TAB PO SCH (08:55)
[2016-07-03] MEDS: SODIUM CHLOR 0.9% 1000 ML INJ 1,000 ML IV SCH (08:56)
[2016-07-03] MEDS: LIDOCAINE HCL 5% PATCH TD SCH (08:56)
[2016-07-03] MEDS: PT OWN: RESTASIS OPHTH DROPS EACH EYE SCH (08:57)
[2016-07-03] MEDS: FLUTICASONE 100 MCG/VILANTEROL 25 MCG INHALER INH SCH (08:57)
[2016-07-03] MEDS ORDERED: POTASSIUM CHLORIDE 20 MEQ CONTROLLED RELEASE TAB PO ONE (12:00)
[2016-07-03] MEDS ORDERED: POTA20TA5 PO (12:04)
[2016-07-03] MEDS ORDERED: DULO20 PO (12:04)
[2016-07-03] MEDS ORDERED: DILA100C PO (12:04)
[2016-07-03] MEDS ORDERED: RISP.25 PO (12:04)
[2016-07-03] MEDS ORDERED: NEUR400C PO (12:04)
[2016-07-03] MEDS ORDERED: GABA100C4 PO (12:04)
--- NOTE | 2016-07-03 12:09 | HHI.DS ---
Discharge Summary Admission Date Jun 27, 2016 at 18:17 Admitting Diagnosis hypoxia, rib fracture (1) Right rib fracture Diagnosis: Principal CBC/BMP: 07/03/16 0520 07/03/16 0520 Significant Findings Laboratory Tests Test 07/01/16 07/02/16 07/03/16 06:16 05:57 05:20 White Blood Count 3.9 TH/MM3 3.3 TH/MM3 3.2 TH/MM3 (4.0-11.0) (4.0-11.0) (4.0-11.0) Red Blood Count 3.82 MIL/MM3 3.95 MIL/MM3 3.76 MIL/MM3 (4.00-5.30) (4.00-5.30) (4.00-5.30) Platelet Count 120 TH/MM3 137 TH/MM3 120 TH/MM3 (150-450) (150-450) (150-450) Monocytes (%) (Auto) 10.8 % 10.5 % 8.6 % (0.0-8.0) (0.0-8.0) (0.0-8.0) Lymphocytes # (Auto) 0.8 TH/MM3 0.6 TH/MM3 (1.0-4.8) (1.0-4.8) Sodium Level 147 MEQ/L 148 MEQ/L 146 MEQ/L (136-145) (136-145) (136-145) Chloride Level 109 MEQ/L 109 MEQ/L (98-107) (98-107) Carbon Dioxide Level 32.6 MEQ/L 33.3 MEQ/L 32.1 MEQ/L (21.0-32.0) (21.0-32.0) (21.0-32.0) Random Glucose 120 MG/DL 117 MG/DL (74-106) (74-106) Calcium Level 7.6 MG/DL 8.0 MG/DL 8.2 MG/DL (8.5-10.1) (8.5-10.1) (8.5-10.1) Total Protein 6.1 GM/DL 6.2 GM/DL 6.0 GM/DL (6.4-8.2) (6.4-8.2) (6.4-8.2) Albumin 3.0 GM/DL 3.1 GM/DL 3.1 GM/DL (3.4-5.0) (3.4-5.0) (3.4-5.0) Neutrophils (%) (Auto) 70.3 % (16.0-70.0) Potassium Level 3.3 MEQ/L (3.5-5.1) PE at Discharge GENERAL: Elderly frail. Disoriented SKIN: Warm and dry. HEAD: Normocephalic. EYES: No scleral icterus. No injection or drainage. NECK: Supple, trachea midline. No JVD or lymphadenopathy. CARDIOVASCULAR: Regular rate and rhythm without murmurs, gallops, or rubs. RESPIRATORY: Breath sounds diminished. No accessory muscle use. On O2 2 GASTROINTESTINAL: Abdomen soft, non-tender, nondistended. MUSCULOSKELETAL: No cyanosis, or edema. BACK: Nontender without obvious deformity. No CVA tenderness. Transfer Summary This is an 81-year-old female who was brought from an assisted living facility after a trip and fall yesterday. Evaluation at an urgent care showed a R rib fracture. She was brought in for uncontrolled R flank and R abdominal pain. She denies head trauma, but does have underlying dementia. She described the pain as sharp, mild at rest, moderate to palpation. She also was found to moderate hypoxia during her hospitalization. She was followed by pulmonary during her stay. She is discharged to SNF for close observation. Pt Condition on Discharge: Stable Discharge Disposition: Discharge to SNF Discharge Instructions DIET: Follow Instructions for: As Tolerated, No Restrictions Activities you can perform: Regular-No Restrictions, See Additionl Instruction New Medications: Duloxetine (Kaliambalta ) 20 Mg Capdr 20 MG PO BID Depression Control #60 CAP Gabapentin (Gabapentin) 100 Mg Cap 200 MG PO TID Pain Management #90 CAP Gabapentin (Neurontin) 400 Mg Cap 800 MG PO HS Pain Management #60 CAP Phenytoin Extended (Dilantin) 100 Mg Cap 100 MG PO BID Seizure Control #60 CAP Potassium Chloride Microencaps (Potassium Chloride Microencaps) 20 Meq Tab 20 MEQ PO BID Electrolyte Replacement #60 TAB Risperidone (Risperdal) 0.25 Mg Tab 0.5 MG PO BID Agitation #60 TAB Continued Medications: Acyclovir Topical (Acyclovir Topical) 5% Oint 1 APPLIC TOPICAL Q3HR Mgmt Viral Infection #5 Ref 0 GM Ascorbic Acid (Vitamin C) 1,000 Mg Tab 1000 MG PO DAILY Nutritional Supplement Ref 0 TAB B-Complex Vitamins (B Complex) 1 Cap 1 CAP PO DAILY Nutritional Supplement #30 Ref 0 CAP Biotin (Biotin) 2,500 Mcg Cap 2500 MCG PO DAILY #1 BOTTLE Yezvnekvtl-Merxycfcffwjg-Oyvtmqel (Wrpzbckwwv-Ljsyijaokciwq-Rsyhfvwb) 50-325-40 Mg Tab 1 TAB PO Q6HR Do not exceed 6 tablets/day. PRN HEADACHE Ref 0 TAB Cholecalciferol (Vitamin D3) 2,000 Unit Cap 2000 UNITS PO DAILY Nutritional Supplement #1 Ref 0 BOTTLE Cyanocobalamin Odt (Vitamin B-12 Odt) 5,000 Mcg Tab 2500 MCG SL DAILY Nutritional Supplement Ref 0 TAB Cyclosporine Opth Drops (Restasis Opth Drops) 0.05% Emul 1 DROP EACH EYE BID Dry Eye #1 Ref 0 BOX Fluticasone-Vilanterol Inh (Breo Ellipta Inh) 100-25 Mcg/Act Inh 1 PUFF INH DAILY Use daily at the same time. #1 Ref 0 INHALER Furosemide (Furosemide) 20 Mg Tab 40 MG PO DAILY #30 Ref 0 TAB Meclizine (Meclizine) 12.5 Mg Tab 12.5 MG PO TID PRN VERTIGO Ref 0 TAB Memantine Er (Namenda Xr) 28 Mg Caper 28 MG PO DAILY Alzheimer Disease #30 Ref 0 CAP Multiple Vitamin (Multi Vitamin) 1 Tab Tab 1 TAB PO DAILY TAB [place]-3 Fatty Acids (Fish Oil 1000 mg) 1 Cap Cap Unknown Dose PO DAILY Progesterone Micronized (Progesterone Micronized) 100 Mg Cap 100 MG PO #30 Ref 0 CAP Vilazodone (Viibryd) 40 Mg Tab 40 MG PO DAILY Control Depression #30 Ref 0 TAB Discontinued Medications: Duloxetine DR (Duloxetine DR) 60 Mg Capdr 60 MG PO BID #30 Ref 0 CAP Furosemide (Furosemide) 20 Mg Tab 20 MG PO DAILY@1600 #30 Ref 0 TAB Gabapentin (Gabapentin) 600 Mg Tab 1200 MG PO HS #30 Ref 0 TAB Gabapentin (Gabapentin) 600 Mg Tab 600 MG PO TID #90 Ref 0 TAB Hydrocodone-Acetaminophen (Hydrocodone-Acetaminophen) 10-325 mg Tab 1 TAB PO Q6H PRN PAIN Ref 0 TAB Hyoscyamine (Hyoscyamine) 0.125 Mg Tab 0.125 MG PO Q6H Gastrointestinal disorders Ref 0 TAB Phenytoin Extended (Phenytoin Extended) 100 Mg Cap 100 MG PO BID Control Seizures #90 Ref 0 CAP Potassium Chloride ER (Potassium Chloride ER) 20 Meq Tab 20 MEQ PO DAILY Electrolyte Replacement #30 Ref 0 TAB Risperidone (Risperidone) 0.25 Mg Tab 0.25 MG PO BID #60 Ref 0 TAB Tramadol (Tramadol) 50 Mg Tab 1-2 TAB PO Q4-6H PRN PAIN Ref 0 TAB Karuna Torres Jul 03, 2016 12:09
[2016-07-03] MEDS ORDERED: FLUT1INH7 INH (12:10)
[2016-07-03 12:37] VITALS: BP 110/67; PULSE 76; RESP 18; TEMP 97.6; O2SAT 96
--- NOTE | 2016-07-20 12:38 | MB ---
cc: HEMALATHA SANDOVAL MD DATE OF CONSULTATION 07/19/2016 HISTORY OF PRESENT ILLNESS Ms. Connolly is an 81-year-old white female who was admitted after she tripped and fell. She had right-sided chest, right flank and abdominal pain. She was found to have rib fractures. She was admitted for shortness of breath and hypoxemia. The patient had episodes of nonsustained wide complex tachycardia on telemetry. She had nonsustained arrhythmia. She denies any angina or heart failure symptoms at this time. PAST MEDICAL HISTORY 1. Positive for dementia. 2. Mastectomy. 3. Anxiety and depression. 4. Chronic migraine headache. 5. Neck surgery. 6. Sleep apnea. 7. Cataract surgery. MEDICATIONS AT HOME 1. Fioricet. 2. Risperdal. 3. Dilantin. 4. Cymbalta. 5. Potassium. 6. Neurontin. 7. Lasix. 8. Breo Ellipta. 9. Haldol. 10. Lidocaine patch. ALLERGIES ASPIRIN. CODEINE. FIORINAL. SOCIAL HISTORY The patient is . She lives in an assisted living facility. She does not smoke but she used to smoke in the past. She drinks alcohol socially in form of wine with dinner. FAMILY HISTORY Negative for heart disease. REVIEW OF SYSTEMS Otherwise negative. PHYSICAL EXAMINATION VITAL SIGNS: Blood pressure 129/50, pulse 63 and regular. HEENT: Negative. NECK: 2+ carotid upstrokes. No bruits. LUNGS: Clear with decreased breath sounds at the bases. HEART: Regular. No murmur, gallop or rub. ABDOMEN: Soft. No bruits. EXTREMITIES: Without edema. 2+ distal pulses. NEUROLOGIC EXAM: Grossly nonfocal. TELEMETRY Telemetry was reviewed and showed sinus rhythm and brief episodes of nonsustained wide complex tachycardia. LABS Hemoglobin 12.7. Potassium 3.9, creatinine 0.6. AST and ALT normal. TSH 0.6. DIAGNOSES 1. Frequent falls. 2. Rib fracture. 3. Nonsustained wide complex tachycardia. 4. Dementia. 5. Chest wall pain. 6. Metabolic encephalopathy. DISPOSITION Ms. Connolly has no previous cardiac history. She was admitted after a fall with rib fracture. She does not have any angina. She is complaining of minimal symptoms. I recommend monitoring on telemetry. She is undergoing neurologic evaluation and management. We will continue pain control. Her blood pressure remains well controlled. I will schedule her for followup and further evaluation in our office as an outpatient. MD GADIEL Rome/KENNY /8:34 PM /12:19 PM CONNIE
== END 2016-07-03 14:17 | DRG 205 ==
LOC: PHED 14:39 → PHEDA 18:17 → PHEDH 22:17 → PHICU 06-28 00:44 → PH3B 06-29 22:48
PROVIDERS: ADMIT Family Medicine; ATTEND Family Medicine
DX: S22.31XA Fracture of one rib, right side, initial encounter for closed fracture (principal); G93.41 Metabolic encephalopathy; G20 Parkinson's disease; F02.81 Dementia in other diseases classified elsewhere, unspecified severity, with behavioral disturbance; G30.9 Alzheimer's disease, unspecified; J98.11 Atelectasis; I10 Essential (primary) hypertension; K57.90 Diverticulosis of intestine, part unspecified, without perforation or abscess without bleeding; R09.02 Hypoxemia; W01.0XXA Fall on same level from slipping, tripping and stumbling without subsequent striking against object, initial encounter; Y92.129 Unspecified place in nursing home as the place of occurrence of the external cause; E03.9 Hypothyroidism, unspecified; E78.5 Hyperlipidemia, unspecified; G47.33 Obstructive sleep apnea (adult) (pediatric); J44.9 Chronic obstructive pulmonary disease, unspecified; J45.909 Unspecified asthma, uncomplicated; Z86.711 Personal history of pulmonary embolism; Z87.891 Personal history of nicotine dependence; Z90.13 Acquired absence of bilateral breasts and nipples
CPT/HCPCS: 70450; 70551; 71010; 71275; 74177; 80048; 80053; 80185; 81001; 82140; 82607; 83735; 84439; 84443; 85007; 85025; 85027; 85610; 85730; 86850; 86900; 86901; 94150; 95819; J1630; J1885; J7030; Q9967